=== PATIENT | female | born 1975 | race Two or more races ===

== ENCOUNTER 2025-05-16 13:55 | Outpatient (AMB) | payer MEDICARE, SELFPAY ==
--- OUTSIDE RECORDS SUMMARY | 2024-11-20 03:30 | XMS_ITS ---
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 Medications Medication SIG (Take, Route, Frequency, Duration) Notes Start Date End Date Status LORazepam 0.5 MG Tablet 1 tablet at bedt dottie as needed Orally nightly; Duration: 30 days 09/26/2024 Active Ezetimibe 10 MG Tablet TAKE 1 TABLET BY MOUTH EVERY DAY FOR 30 DAYS; Duration: 30 Active Escitalopram Oxalate 20 MG Tablet 1 tablet Orally Once a day; Duration: 90 days 06/16/2024 Active Mirtazapine 15 MG Tablet TAKE 1 TABLET B Y MOUTH EVERY DAY AT BEDTIME FOR 30 DAYS; Duration: 90 Active Vitamin D3 125 MCG (5000 UT) Capsule 1 capsule Orally Once a day; Duration: 90 days 03/02/2024 Active Vitamin B12 100 MCG Tablet 1 tablet Orally daiy; Duration: 90 days 03/02/2024 Active Folic Acid 1 MG Tablet 1 tablet Orally O nce a day; Duration: 90 days 03/02/2024 Active Thiamine HCl 100 MG Tablet 1 tablet Orally Once a day; Duration: 90 days 03/02/2024 Active Escitalopram Oxalate 5 MG Tablet 1 tablet Orally Once a day; Duration: 90 days Active Vivitrol 380 MG Suspension Reconstituted INJECT 380MG INTRAMUSCULARLY EVERY 4 WEEKS; Duration: 28 days Active Encounters Encounter Location Date Provider Diagnosis [facility] [address] [address] 11/20/2024 YAYO CALHOUN Alcohol abuse F10.10 Assessments Encounter Date Diagnosis (ICD Code) Assessment Notes Treatment Notes Treatment Clinical Notes Section Notes 11/20/2024 Alcohol abuse (ICD-10 - F10.10) Plan Of Treatment Next Appt Details Provider Name:YAYO CALHOUN, 06/18/2025 10:00:00 AM, [address] [place] [address], [facility] [address], [place], [address], Medications Administered Medication Instructions Date of Administration Dosage Notes Vivitrol 11/20/2024 LOT#2025-300h Progress Notes * Eleonora BROWNLuzmaB:[birth year] (49 yo F)Acc No.[id number]:11/20/2024 Progress Note Patient: July Nieves Provider: Raven CALHOUN NP :1975 A ge:49 Y S ex:Female Date:11/20/2024 Address:[address] [place], [place] [id number] Subjective: * Chief Complaints: * P t here for vivotrol injection on left buttocks, pt tolerated well with no reaction. * Medications: T akingVivitrol 380 MG Suspension Reconstituted INJECT 380MG INTRAMUSCULARLY EVERY 4 WEEKS Escitalopram Oxalate 5 MG Tablet 1 tablet Orally Once a day Thiamine HCl 100 MG Tablet 1 tablet Orally Once a day Folic Acid 1 MG Tablet 1 tablet Orally Once a day Vitamin B12 100 MCG Tablet 1 tablet Orally daiy Vitamin D3 125 MCG (5000 UT) Capsule 1 capsule Orally Once a day Mirtazapine 15 MG Tablet TAKE 1 TABLET BY MOUTH EVERY DAY AT BEDTIME FOR 30 DAYS Escitalopram Oxalate 20 MG Tablet 1 tablet Orally Once a day Ezetimibe 10 MG Tablet TAKE 1 TABLET BY MOUTH EVERY DAY FOR 30 DAYS LORazepam 0.5 MG Tablet 1 tablet at bedtime as needed Orally nightly Taking Vivitrol 380 MG Suspension Reconstituted INJECT 380MG INTRAMUSCULARLY EVERY 4 WEEKS Taking Escitalopram Oxalate 5 MG Tablet 1 tablet Orally Once a day Taking Thiamine HCl 100 MG Tablet 1 tablet Orally Once a day Taking Folic Acid 1 MG Tablet 1 tablet Orally Once a day Taking Vitamin B12 100 MCG Tablet 1 tablet Orally daiy Taking Vitamin D3 125 MCG (5000 UT) Capsule 1 capsule Orally Once a day Taking Mirtazapine 15 MG Tablet TAKE 1 TABLET BY MOUTH EVERY DAY AT BEDTIME FOR 30 DAYS Taking Escitalopram Oxalate 20 MG Tablet 1 tablet Orally Once a day Taking Ezetimibe 10 MG Tablet TAKE 1 TABLET BY MOUTH EVERY DAY FOR 30 DAYS Taking LORazepam 0.5 MG Tablet 1 tablet at bedtime as needed Orally nightly Assessment: * Assessment: 1. A lcohol abuse - F10.10 Plan: * Therapeutic Injections: Vivitrol (Route: Intramuscular) given by Usama Grady on left buttock * Procedure Codes: J 2315 NALTREXONE, DEPOT [id number] THER/PROPH/DIAG INJ, SC/IM Billing Information: * Procedure Codes: J2315 NALTREXONE, DEPOT FORM. [id number] THER/PROPH/DIAG INJ, SC/IM. Care Plan Details* * Electronic signature of KATARZYNA CALHOUN on 05/16/2025 at 01:57 PM EST Sign off status: Pending * Provider: Raven CALHOUN NP Date: 0 11/20/2024 Generated for Izzy amado/Rito/Dima on: 07/17/2024 01:57 PM EST
--- OUTSIDE RECORDS SUMMARY | 2024-12-22 04:00 | XMS_ITS ---
Author Organization [facility] [address] Address [address] [place] [address] Care Team Providers Care Advertising Consultant Name Role Phone YAYO CALHOUN Unavailable [phone] REASON FOR VISIT vivitrol Encounters Encounter Location Date Provider Diagnosis [facility] [address] [facility] [address] [place] [address] 12/22/2024 YAYO CALHOUN Plan Of Treatment Next Appt Details Provider Name:YAYO CALHOUN, 06/18/2025 10:00:00 AM, [address] [facility], [facility] [address], [place], [address], Progress Notes * Jameson BROWNB:[birth year] (49 yo F)Acc No.[id number]:12/22/2024 Progress Note Patient: July Nieves Provider: Raven CALHOUN NP :1975 A ge:49 Y S ex:Female Date:12/22/2024 Address:[address] [place] [id number] Subjective: * Chief Complaints: * V ivitrol Plan: * Procedure Codes: 9 9199 NO SHOW OFFICE VISIT Billing Information: * Procedure Codes: 33616 NO SHOW OFFICE VISIT. Care Plan Details* * Electronic signature of KATARZYNA CALHOUN on 05/16/2025 at 01:58 PM EST Sign off status: Pending * Provider: Raven CALHOUN NP Date: 0 12/22/2024 Generated for Printi ng/Faxing/eTransmitting on: 1 07/17/2024 01:58 PM EST
--- OUTSIDE RECORDS SUMMARY | 2024-12-29 03:30 | XMS_ITS ---
Author Organization [facility] [address] Address [address] [place] [address] Care Team Providers Care Spare Person Name Role Phone YAYO CALHOUN Unavailable [phone] REASON FOR VISIT mic Medications Medication SIG (Take, Route, Frequency, Duration) Notes Start Date End Date Status Escitalopram Oxalate 20 MG Tablet TAKE 1 TABLET BY MOUTH EVERY DAY FOR 90 DAYS; Duration: 90 Active Vivitrol 380 MG Suspension Reconstituted INJECT 380MG INTO THE MUSCLE EVERY 28 DAYS; Duration: 28 Active Ezetimibe 10 MG Tablet TAKE 1 TABLET BY MOUTH EVERY DAY FOR 30 DAYS; Duration: 30 Active Mirtazapine 15 MG Tablet TAKE 1 TABLET B Y MOUTH EVERY DAY AT BEDTIME FOR 30 DAYS; Duration: 90 Active LORazepam 0.5 MG Tablet 1 tablet at bedt dottie as needed Orally nightly; Duration: 30 days 11/23/2024 Active Folic Acid 1 MG Tablet 1 tablet Orally O nce a day; Duration: 90 days 03/02/2024 Active Thiamine HCl 100 MG Tablet 1 tablet Oral ly Once a day; Duration: 90 days 03/02/2024 Active Escitalopram Oxalate 5 MG Tablet 1 tablet Orally Once a day; Duration: 90 days Active Vitamin D3 125 MCG (5000 UT) Capsule 1 capsule Orally Once a day; Duration: 90 days 03/02/2024 Active Vitamin B12 100 MCG Tablet 1 tablet Oral ly daiy; Duration: 90 days 03/02/2024 Active Encounters Encounter Location Date Provider Diagnosis [facility] [address] [address] 12/29/2024 YAYO CALHOUN Plan Of Treatment Next Appt Details Provider Name:YAYO CALHOUN, 06/18/2025 10:00:00 AM, [address] [facility], [facility] [address], [place], [address], Progress Notes * Jameson BROWNB:[birth year] (49 yo F)Acc No.[id number]:12/29/2024 Progress Note Patient: July Nieves Provider: Raven CALHOUN NP :1975 A ge:49 Y S ex:Female Date:12/29/2024 Address:[address] [place], [place] [phone] Subjective: * Chief Complaints: * M icc * Medications: T akingEscitalopram Oxalate 5 MG Tablet 1 tablet Orally Once a day Thiamine HCl 100 MG Tablet 1 tablet Orally Once a day Folic Acid 1 MG Tablet 1 tablet Orally Once a day Vitamin B12 100 MCG Tablet 1 tablet Orally daiy Vitamin D3 125 MCG (5000 UT) Capsule 1 capsule Orally Once a day LORazepam 0.5 MG Tablet 1 tablet at bedtime as needed Orally nightly Mirtazapine 15 MG Tablet TAKE 1 TABLET BY MOUTH EVERY DAY AT BEDTIME FOR 30 DAYS Ezetimibe 10 MG Tablet TAKE 1 TABLET BY MOUTH EVERY DAY FOR 30 DAYS Vivitrol 380 MG Suspension Reconstituted INJECT 380MG INTO THE MUSCLE EVERY 28 DAYS Escitalopram Oxalate 20 MG Tablet TAKE 1 TABLET BY MOUTH EVERY DAY FOR 90 DAYS Taking Escitalopram Oxalate 5 MG Tablet 1 tablet Orally Once a day Taking Thiamine HCl 100 MG Tablet 1 tablet Orally Once a day Taking Folic Acid 1 MG Tablet 1 tablet Orally Once a day Taking Vitamin B12 100 MCG Tablet 1 tablet Orally daiy Taking Vitamin D3 125 MCG (5000 UT) Capsule 1 capsule Orally Once a day Taking LORazepam 0.5 MG Tablet 1 tablet at bedtime as needed Orally nightly Taking Mirtazapine 15 MG Tablet TAKE 1 TABLET BY MOUTH EVERY DAY AT BEDTIME FOR 30 DAYS Taking Ezetimibe 10 MG Tablet TAKE 1 TABLET BY MOUTH EVERY DAY FOR 30 DAYS Taking Vivitrol 380 MG Suspension Reconstituted INJECT 380MG INTO THE MUSCLE EVERY 28 DAYS Taking Escitalopram Oxalate 20 MG Tablet TAKE 1 TABLET BY MOUTH EVERY DAY FOR 90 DAYS Plan: * Procedure Codes: 9 9199 NO SHOW OFFICE VISIT Billing Information: * Procedure Codes: 61790 NO SHOW OFFICE VISIT. Care Plan Details* * Electronic signature of KATARZYNA CALHOUN on 05/16/2025 at 01:56 PM EST Sign off status: Pending * Provider: Raven CALHOUN NP Date: 0 12/29/2024 Generated for Izzy amado/Rito/Dima on: 07/17/2024 01:56 PM EST
--- OUTSIDE RECORDS SUMMARY | 2025-02-23 04:15 | XMS_ITS ---
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 Phone YAYO CALHOUN Unavailable [phone] Medications Medication SIG (Take, Route, Frequency, Duration) Notes Start Date End Date Status Vitamin D3 125 MCG (5000 UT) Capsule 1 capsule Orally Once a day; Duration: 90 days Active LORazepam 0.5 MG Tablet 1 tablet at bedt dottie as needed Orally nightly; Duration: 30 days Active Thiamine HCl 100 MG Tablet 1 tablet Oral ly Once a day; Duration: 90 days Active Vitamin B12 100 MCG Tablet 1 tablet Oral ly daiy; Duration: 90 days Active Folic Acid 1 MG Tablet 1 tablet Orally O nce a day; Duration: 90 days Active Mirtazapine 15 MG Tablet TAKE 1 TABLET B Y MOUTH EVERY DAY AT BEDTIME FOR 30 DAYS; Duration: 90 Active Vivitrol 380 MG Suspension Reconstituted INJECT 380MG INTO THE MUSCLE EVERY 28 DAYS; Duration: 28 Active Ezetimibe 10 MG Tablet TAKE 1 TABLET BY MOUTH EVERY DAY FOR 30 DAYS; Duration: 30 Active Escitalopram Oxalate 20 MG Tablet TAKE 1 TABLET BY MOUTH EVERY DAY FOR 90 DAYS; Duration: 90 Active Escitalopram Oxalate 5 MG Tablet 1 tablet Orally Once a day; Duration: 90 days Active Encounters Encounter Location Date Provider Diagnosis [facility] [address] [address] 02/23/2025 YAYO CALHOUN Anxiety F41.9 ; Alco hol abuse, uncomplicated F10.10 ; Severe episode of recurrent major depressive disorder, without psychotic features F33.2 ; Abdominal pain of unknown etiology R10.9 ; Elevated LFTs R79.89 ; Other chronic pain G89.29 ; Mixed hyperlipidemia E78.2 ; Fatty liver K76.0 and Encounter for examination of blood pressure without abnormal findings Z01.30 Assessments Encounter Date Diagnosis (ICD Code) Assessment Notes Treatment Notes Treatment Clinical Notes Section Notes 02/23/2025 Anxiety (ICD-10 - F41.9) Acute Concerns/Problem List: 02/23/2025 Please resume and continue taking your Lexapro regularly, Ativan for breakthrough Please consider incorporating psychotherapy Took Vivitrol 48 hours ago, last drink 72 hours ago Discussed importance of consistent use of this medication and to refrain from alcohol use If worsening symptoms, ER advised given Continue Ezetimibe as prescribed, repeat lipid panel sent Nurse visit scheduled for her Vivitrol injections I like to see her back in 4 weeks Of note, some information is being carried forward from prior records for informational purposes only and is being cited so that efficiency, safety and quality of the patient's care is not compromised This note was prepared using voice recognition software and direct typing Please excuse inadvertent section beamer or typing errors, or uncorrected word substitutions Although every attempt has been made by the provider to proofread this document, occasional misspellings and typographical errors may still be present Due to the previous pandemic, and the use of personal protective equipment (PPE) This may decrease voice recognition accuracy Inadvertent section beamer errors may occur 02/23/2025 Alcohol abuse, uncomplicated (ICD-10 - F10.10) Acute Concerns/Problem List: 02/23/2025 Please resume and continue taking your Lexapro regularly, Ativan for breakthrough Please consider incorporating psychotherapy Took Vivitrol 48 hours ago, last drink 72 hours ago Discussed importance of consistent use of this medication and to refrain from alcohol use If worsening symptoms, ER advised given Continue Ezetimibe as prescribed, repeat lipid panel sent Nurse visit scheduled for her Vivitrol injections I like to see her back in 4 weeks Of note, some information is being carried forward from prior records for informational purposes only and is being cited so that efficiency, safety and quality of the patient's care is not compromised This note was prepared using voice recognition software and direct typing Please excuse inadvertent section beamer or typing errors, or uncorrected word substitutions Although every attempt has been made by the provider to proofread this document, occasional misspellings and typographical errors may still be present Due to the previous pandemic, and the use of personal protective equipment (PPE) This may decrease voice recognition accuracy Inadvertent section beamer errors may occur 02/23/2025 Severe episode of recurrent major depressive disorder, without psychotic features (ICD-10 - F33.2) Acute Concerns/Problem List: 02/23/2025 Please resume and continue taking your Lexapro regularly, Ativan for breakthrough Please consider incorporating psychotherapy Took Vivitrol 48 hours ago, last drink 72 hours ago Discussed importance of consistent use of this medication and to refrain from alcohol use If worsening symptoms, ER advised given Continue Ezetimibe as prescribed, repeat lipid panel sent Nurse visit scheduled for her Vivitrol injections I like to see her back in 4 weeks Of note, some information is being carried forward from prior records for informational purposes only and is being cited so that efficiency, safety and quality of the patient's care is not compromised This note was prepared using voice recognition software and direct typing Please excuse inadvertent section beamer or typing errors, or uncorrected word substitutions Although every attempt has been made by the provider to proofread this document, occasional misspellings and typographical errors may still be present Due to the previous pandemic, and the use of personal protective equipment (PPE) This may decrease voice recognition accuracy Inadvertent section beamer errors may occur 02/23/2025 Abdominal pain of unknown etiology (ICD-10 - R10.9) Acute Concerns/Problem List: 02/23/2025 Please resume and continue taking your Lexapro regularly, Ativan for breakthrough Please consider incorporating psychotherapy Took Vivitrol 48 hours ago, last drink 72 hours ago Discussed importance of consistent use of this medication and to refrain from alcohol use If worsening symptoms, ER advised given Continue Ezetimibe as prescribed, repeat lipid panel sent Nurse visit scheduled for her Vivitrol injections I like to see her back in 4 weeks Of note, some information is being carried forward from prior records for informational purposes only and is being cited so that efficiency, safety and quality of the patient's care is not compromised This note was prepared using voice recognition software and direct typing Please excuse inadvertent section beamer or typing errors, or uncorrected word substitutions Although every attempt has been made by the provider to proofread this document, occasional misspellings and typographical errors may still be present Due to the previous pandemic, and the use of personal protective equipment (PPE) This may decrease voice recognition accuracy Inadvertent section beamer errors may occur 02/23/2025 Elevated LFTs (ICD-10 - R79.89) Acute Concerns/Problem List: 02/23/2025 Please resume and continue taking your Lexapro regularly, Ativan for breakthrough Please consider incorporating psychotherapy Took Vivitrol 48 hours ago, last drink 72 hours ago Discussed importance of consistent use of this medication and to refrain from alcohol use If worsening symptoms, ER advised given Continue Ezetimibe as prescribed, repeat lipid panel sent Nurse visit scheduled for her Vivitrol injections I like to see her back in 4 weeks Of note, some information is being carried forward from prior records for informational purposes only and is being cited so that efficiency, safety and quality of the patient's care is not compromised This note was prepared using voice recognition software and direct typing Please excuse inadvertent section beamer or typing errors, or uncorrected word substitutions Although every attempt has been made by the provider to proofread this document, occasional misspellings and typographical errors may still be present Due to the previous pandemic, and the use of personal protective equipment (PPE) This may decrease voice recognition accuracy Inadvertent section beamer errors may occur 02/23/2025 Other chronic pain (ICD-10 - G89.29) Acute Concerns/Problem List: 02/23/2025 Please resume and continue taking your Lexapro regularly, Ativan for breakthrough Please consider incorporating psychotherapy Took Vivitrol 48 hours ago, last drink 72 hours ago Discussed importance of consistent use of this medication and to refrain from alcohol use If worsening symptoms, ER advised given Continue Ezetimibe as prescribed, repeat lipid panel sent Nurse visit scheduled for her Vivitrol injections I like to see her back in 4 weeks Of note, some information is being carried forward from prior records for informational purposes only and is being cited so that efficiency, safety and quality of the patient's care is not compromised This note was prepared using voice recognition software and direct typing Please excuse inadvertent section beamer or typing errors, or uncorrected word substitutions Although every attempt has been made by the provider to proofread this document, occasional misspellings and typographical errors may still be present Due to the previous pandemic, and the use of personal protective equipment (PPE) This may decrease voice recognition accuracy Inadvertent section beamer errors may occur 02/23/2025 Mixed hyperlipidemia (ICD-10 - E78.2) Acute Concerns/Problem List: 02/23/2025 Please resume and continue taking your Lexapro regularly, Ativan for breakthrough Please consider incorporating psychotherapy Took Vivitrol 48 hours ago, last drink 72 hours ago Discussed importance of consistent use of this medication and to refrain from alcohol use If worsening symptoms, ER advised given Continue Ezetimibe as prescribed, repeat lipid panel sent Nurse visit scheduled for her Vivitrol injections I like to see her back in 4 weeks Of note, some information is being carried forward from prior records for informational purposes only and is being cited so that efficiency, safety and quality of the patient's care is not compromised This note was prepared using voice recognition software and direct typing Please excuse inadvertent section beamer or typing errors, or uncorrected word substitutions Although every attempt has been made by the provider to proofread this document, occasional misspellings and typographical errors may still be present Due to the previous pandemic, and the use of personal protective equipment (PPE) This may decrease voice recognition accuracy Inadvertent section beamer errors may occur 02/23/2025 Fatty liver (ICD-10 - K76.0) Acute Concerns/Problem List: 02/23/2025 Please resume and continue taking your Lexapro regularly, Ativan for breakthrough Please consider incorporating psychotherapy Took Vivitrol 48 hours ago, last drink 72 hours ago Discussed importance of consistent use of this medication and to refrain from alcohol use If worsening symptoms, ER advised given Continue Ezetimibe as prescribed, repeat lipid panel sent Nurse visit scheduled for her Vivitrol injections I like to see her back in 4 weeks Of note, some information is being carried forward from prior records for informational purposes only and is being cited so that efficiency, safety and quality of the patient's care is not compromised This note was prepared using voice recognition software and direct typing Please excuse inadvertent section beamer or typing errors, or uncorrected word substitutions Although every attempt has been made by the provider to proofread this document, occasional misspellings and typographical errors may still be present Due to the previous pandemic, and the use of personal protective equipment (PPE) This may decrease voice recognition accuracy Inadvertent section beamer errors may occur 02/23/2025 Encounter for examination of blood pressure without abnormal findings (ICD-10 - Z01.30) Acute Concerns/Problem List: 02/23/2025 Please resume and continue taking your Lexapro regularly, Ativan for breakthrough Please consider incorporating psychotherapy Took Vivitrol 48 hours ago, last drink 72 hours ago Discussed importance of consistent use of this medication and to refrain from alcohol use If worsening symptoms, ER advised given Continue Ezetimibe as prescribed, repeat lipid panel sent Nurse visit scheduled for her Vivitrol injections I like to see her back in 4 weeks Of note, some information is being carried forward from prior records for informational purposes only and is being cited so that efficiency, safety and quality of the patient's care is not compromised This note was prepared using voice recognition software and direct typing Please excuse inadvertent section beamer or typing errors, or uncorrected word substitutions Although every attempt has been made by the provider to proofread this document, occasional misspellings and typographical errors may still be present Due to the previous pandemic, and the use of personal protective equipment (PPE) This may decrease voice recognition accuracy Inadvertent section beamer errors may occur Plan Of Treatment Medication Medication Name Sig Start Date Stop Date Notes Vitamin D3 125 MCG (5000 UT) Capsule 1 capsule Orally Once a day; Duration: 90 days LORazepam 0.5 MG Tablet 1 tablet at bedt dottie as needed Orally nightly; Duration: 30 days Thiamine HCl 100 MG Tablet 1 tablet Oral ly Once a day; Duration: 90 days Vitamin B12 100 MCG Tablet 1 tablet Oral ly daiy; Duration: 90 days Folic Acid 1 MG Tablet 1 tablet Orally O nce a day; Duration: 90 days Escitalopram Oxalate 5 MG Tablet 1 table t Orally Once a day; Duration: 90 days Next Appt Details Provider Name:YAYO CALHOUN, 06/18/2025 10:00:00 AM, [address] [place] [address], [id number], History and Physical Notes * HPI (History of Present Illness) Category Sub-Category Detail Notes Category Not es Constitutional Patient is here for Chronic Disease Management follow-up visit Patient seen and examined. Full past medical history, social history, family history, allergies and current medications were reviewed and updated. Acute Concerns/Problem List: 02/23/2025 Poor compliance and no-shows, multiple reschedules Depression follow-up, Substance abuse and EtOH dependence Requesting work note for mental health break until November 27 Denies any SI, is tearful today in the room Has been off and on Vivitrol injections in the past Received Vivitrol shot 2 days ago, Wednesday the first Reports last EtOH use 24 hours prior She has been inconsistent with her use Had been doing well on it however continues to endorse occasional binge drinking Psychotherapy strongly urged and recommended in combination with pharmacological therapy was seeing Dr Harper/psych, dx with major depression, however was DC due to missing appts RX lorazapam/lexapro 10mg, Takes intermittently Requesting Lorazepam to help with racing thoughts at night NO SI Endorses family Hx of cardiac disease in 2 paternal uncles & grandfather, maternal grandfather, 2 aunts and uncle. has been taking Ezetimibe as prescribed, Decided against statins given LFTs and drinking history Recently saw GI and had labs done with them in May 2024 Following up with GI in September, with Xray scheduled for August Previously, TTG was negative as well as gliadin antibodies, endomysial antibody H. pylori breath test however was positive Patient has had waxing and waning abdominal discomfort mostly over the epigastrium for the last several months Has had upper endoscopy and colonoscopy about 2 to 3 years ago she states with [facility] said that it is likely psychosomatic and she is now on SSRI We did start her on PPI and did abdomen CT, Colonoscopy, EGD multiple GI studies, As well as liver ultrasound which showed a fatty liver She reports postprandial abdominal bloating and pain over the epigastrium She does have a history of abnormal uterine bleeding and endometrial mass She underwent fractional D&C hysteroscopy and polypectomy back in 2021 Sees [employer] and was doing transdermal HRT for menopause also [facility] 06/14/2023, [place] [facility] [place] with [place] Guajardo Comprehensive labs May 2024 CBC stable Total cholesterol 280, LDL 180, HDL 72, triglycerides 139 Vitamin D 15 TSH 1.07 Renal function electrolytes are stable AST 55, ALT 76, alk phos of 130 Hemoglobin A1c 4.8 UA unremarkable Hemoglobin A1c 4.9 Health maintenance Flu 2024 COVID: x3 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 Examination Category Sub-Category Detail Notes Category Not es General Examination GENERAL APPEARANCE: in no ac rakan distress, well developed, well nourished HEAD: normocephalic, atrau matic EYES: pupils equal, round, reactive to light and accommodation EARS: normal THROAT: clear NECK/THYROID: neck supple, full ra nge of motion, no cervical lymphadenopathy HEART: no murmurs, tachycar dic rate and rhythm, S1, S2 normal LUNGS: clear to auscultatio n bilaterally ABDOMEN: normal, bowel sounds present, soft, nontender, nondistended NEUROLOGIC: nonfocal, motor stre ngth normal upper and lower extremities, sensory exam intact SKIN: no suspicious lesion s, warm and dry EXTREMITIES: no clubbing, cyanosi s, or edema ORAL CAVITY: mucosa moist Progress Notes * Eleonora BROWNaDOB:[birth year] (49 yo F)Acc No.[id number]:02/23/2025 Progress Notes Patient: July Nieves Provider: Raven CALHOUN NP :1975 A ge:49 Y S ex:Female Date:02/23/2025 Address:[address] [place], [place] [id number] Subjective: * Chief Complaints: * HPI: C onstitutional: Patient is here for Chronic Disease Management follow-up visit Patient seen and examined. Full past medical history, social history, family history, allergies and current medications were reviewed and updated. Acute Concerns/Problem List: 02/23/2025 Poor compliance and no-shows, multiple reschedules Depression follow-up, Substance abuse and EtOH dependence Requesting work note for mental health break until Wednesday, November 27 Denies any SI, is tearful today in the room Has been off and on Vivitrol injections in the past Received Vivitrol shot 2 days ago, Wednesday the first Reports last EtOH use 24 hours prior She has been inconsistent with her use Had been doing well on it however continues to endorse occasional binge drinking Psychotherapy strongly urged and recommended in combination with pharmacological therapy was seeing Dr Harper/psych, dx with major depression, however was DC due to missing appts RX lorazapam/lexapro 10mg, Takes intermittently Requesting Lorazepam to help with racing thoughts at night NO SI Endorses family Hx of cardiac disease in 2 paternal uncles & grandfather, maternal grandfather, 2 aunts and uncle. has been taking Ezetimibe as prescribed, Decided against statins given LFTs and drinking history Recently saw GI and had labs done with them in May 2024 Following up with GI in September, with Xray scheduled for August Previously, TTG was negative as well as gliadin antibodies, endomysial antibody H. pylori breath test however was positive Patient has had waxing and waning abdominal discomfort mostly over the epigastrium for the last several months Has had upper endoscopy and colonoscopy about 2 to 3 years ago she states with [facility] said that it is likely psychosomatic and she is now on SSRI We did start her on PPI and did abdomen CT, Colonoscopy, EGD multiple GI studies, As well as liver ultrasound which showed a fatty liver She reports postprandial abdominal bloating and pain over the epigastrium She does have a history of abnormal uterine bleeding and endometrial mass She underwent fractional D&C hysteroscopy and polypectomy back in 2021 Sees [employer] and was doing transdermal HRT for menopause also [facility] 06/14/2023, @ [facility] [place] with Dr Guajardo Comprehensive labs May 2024 CBC stable Total cholesterol 280, LDL 180, HDL 72, triglycerides 139 Vitamin D 15 TSH 1.07 Renal function electrolytes are stable AST 55, ALT 76, alk phos of 130 Hemoglobin A1c 4.8 UA unremarkable Hemoglobin A1c 4.9 Health maintenance Flu 2024 COVID: x3 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 * ROS: A ll Other Systems: Review of Systems (ROS) A ll others negative except those mentioned in HPI. * Medications: T akingEscitalopram Oxalate 5 MG [...] BY MOUTH EVERY DAY FOR 90 DAYS LORazepam 0.5 MG Tablet 1 tablet at bedtime as needed Orally nightly Taking Escitalopram Oxalate 5 MG Tablet 1 [...] MOUTH EVERY DAY FOR 90 DAYS Taking LORazepam 0.5 MG Tablet 1 tablet at bedtime as needed Orally nightly Objective: * Examination: G eneral Examination: GENERAL APPEARANCE: i n no acute distress, well developed, well nourished. HEAD: n ormocephalic, atraumatic. EYES: p upils equal, round, reactive to light and accommodation. EARS: n ormal. ORAL CAVITY: m ucosa moist. THROAT: c lear. NECK/THYROID: n jeremiah supple, full range of motion, no cervical lymphadenopathy. SKIN: n o suspicious lesions, warm and dry. HEART: n o murmurs, tachycardic rate and rhythm, S1, S2 normal. LUNGS: c lear to auscultation bilaterally. ABDOMEN: n ormal, bowel sounds present, soft, nontender, nondistended. EXTREMITIES: n o clubbing, cyanosis, or edema. NEUROLOGIC: n onfocal, motor strength normal upper and lower extremities, sensory exam intact. Assessment: * Assessment: 1. S evere episode of recurrent major depressive disorder, without psychotic features - F33.2 (Primary) 2 . A nxiety - F41.9 3 . A lcohol abuse, uncomplicated - F10.10 4 . A bdominal pain of unknown etiology - R10.9 5 . Elevated LFTs - R79.89 6 . O ther chronic pain - G89.29 7 . M ixed hyperlipidemia - E78.2 8 . F atty liver - K76.0 9 .?Encounter for examination of blood pressure without abnormal findings - Z01.30 ? Acute Concerns/Problem List: 02/23/2025 Please resume and continue taking your Lexapro regularly, Ativan for breakthrough Please consider incorporating psychotherapy Took Vivitrol 48 hours ago, last drink 72 hours ago Discussed importance of consistent use of this medication and to refrain from alcohol use If worsening symptoms, ER advised given Continue Ezetimibe as prescribed, repeat lipid panel sent Nurse visit scheduled for her Vivitrol injections I like to see her back in 4 weeks Of note, some information is being carried forward from prior records for informational purposes only and is being cited so that efficiency, safety and quality of the patient's care is not compromised This note was prepared using voice recognition software and direct typing Please excuse inadvertent section beamer or typing errors, or uncorrected word substitutions Although every attempt has been made by the provider to proofread this document, occasional misspellings and typographical errors may still be present Due to the previous pandemic, and the use of personal protective equipment (PPE) This may decrease voice recognition accuracy Inadvertent section beamer errors may occur Plan: * Treatment: Care Plan Details* * Electronic signature of KATARZYNA CALHOUN on 05/16/2025 at 01:57 PM EST Sign off status: Pending * Provider: Raven CALHOUN NP Date: Generated for Izzy amado/Rito/Dima on: 07/17/2024 01:57 PM EST
--- OUTSIDE RECORDS SUMMARY | 2025-03-29 09:00 | XMS_ITS ---
Author Organization [facility] Address [address] [place] [address] Care Team Providers Care Mental Health Program Manager Name Role Phone YAYO CALHOUN Unavailable [phone] REASON FOR VISIT Pt here for vivitrol injection on right buttocks. Pt tolerated well with no reaction. Medications Medication SIG (Take, Route, Frequency, Duration) Notes Start Date End Date Status Escitalopram Oxalate 20 MG Tablet TAKE 1 TABLET BY MOUTH EVERY DAY FOR 90 DAYS; Duration: 90 Active Thiamine HCl 100 MG Tablet 1 tablet Oral ly Once a day; Duration: 90 days Active Escitalopram Oxalate 5 MG Tablet 1 tablet Orally Once a day; Duration: 90 days Active Vitamin B12 100 MCG Tablet 1 tablet Oral ly daiy; Duration: 90 days Active Folic Acid 1 MG Tablet 1 tablet Orally O nce a day; Duration: 90 days Active LORazepam 0.5 MG Tablet 1 tablet at bedt dottie as needed Orally nightly; Duration: 30 days Active Vitamin D3 125 MCG (5000 UT) Capsule 1 capsule Orally Once a day; Duration: 90 days Active Mirtazapine 15 MG Tablet TAKE 1 TABLET B Y MOUTH EVERY DAY AT BEDTIME FOR 30 DAYS; Duration: 90 Active Ezetimibe 10 MG Tablet TAKE 1 TABLET BY MOUTH EVERY DAY FOR 30 DAYS; Duration: 30 Active Vivitrol 380 MG Suspension Reconstituted INJECT 380MG INTO THE MUSCLE EVERY 28 DAYS; Duration: 28 Active Encounters Encounter Location Date Provider Diagnosis [facility] [address] [address] 03/29/2025 YAYO CALHOUN Alcohol abuse F10.10 Assessments Encounter Date Diagnosis (ICD Code) Assessment Notes Treatment Notes Treatment Clinical Notes Section Notes 03/29/2025 Alcohol abuse (ICD-10 - F10.10) Plan Of Treatment Next Appt Details Provider Name:YAYO LJ, 06/18/2025 10:00:00 AM, [address] [place] [address], [place], [address], Progress Notes * Eleonora BROWNLuzmaB:[birth year] (49 yo F)Acc No.[id number]:03/29/2025 Progress Note Patient: July Nieves Provider: Raven CALHOUN NP :1975 A ge:49 Y S ex:Female Date:03/29/2025 Address:[address] [place], [place] [id number] Subjective: * Chief Complaints: * P t here for vivitrol injection on right buttocks. Pt tolerated well with no reaction. * Medications: T akingMirtazapine 15 MG Tablet TAKE 1 TABLET BY MOUTH EVERY DAY AT BEDTIME FOR 30 DAYS Ezetimibe 10 MG Tablet TAKE 1 TABLET BY MOUTH EVERY DAY FOR 30 DAYS Vivitrol 380 MG Suspension Reconstituted INJECT 380MG INTO THE MUSCLE EVERY 28 DAYS Escitalopram Oxalate 20 MG Tablet TAKE 1 TABLET BY MOUTH EVERY DAY FOR 90 DAYS Escitalopram Oxalate 5 MG Tablet 1 tablet [...] A lcohol abuse - F10.10 Plan: * Procedure Codes: 9 6372 THER/PROPH/DIAG INJ, SC/IM Billing Information: * Procedure Codes: 10514 THER/PROPH/DIAG INJ, SC/IM. Care Plan Details* * Electronic signature of KATARZYNA CALHOUN on 05/16/2025 at 01:57 PM EST Sign off status: Pending * Provider: Raven CALHOUN NP Date: 05/29/2024 Generated for Izzy Kennedy/Dima on: 07/17/2024 01:57 PM EST
--- OUTSIDE RECORDS SUMMARY | 2025-03-30 04:15 | XMS_ITS ---
Author Organization [facility] [address] Address [address] [place] [address] Care Team Providers Care Phlebotomist Supervisor/Instructor Name Role Phone YAYO CALHOUN Unavailable [phone] Zenaida Agustin Unavailable [phone] REASON FOR VISIT pt fell last week is having left hip and leg pain. Medications Medication SIG (Take, Route, Frequency, Duration) Notes Start Date End Date Status Vitamin D3 125 MCG (5000 UT) Capsule 1 capsule Orally Once a day; Duration: 90 days Active Vitamin B12 100 MCG Tablet 1 tablet Oral ly daiy; Duration: 90 days Active LORazepam 0.5 MG Tablet 1 tablet at bedt dottie as needed Orally nightly; Duration: 30 days Active Ezetimibe 10 MG Tablet TAKE 1 TABLET BY MOUTH EVERY DAY FOR 30 DAYS; Duration: 30 Active Mirtazapine 15 MG Tablet TAKE 1 TABLET B Y MOUTH EVERY DAY AT BEDTIME FOR 30 DAYS; Duration: 90 Active Escitalopram Oxalate 20 MG Tablet TAKE 1 TABLET BY MOUTH EVERY DAY FOR 90 DAYS; Duration: 90 Active Vivitrol 380 MG Suspension Reconstituted INJECT 380MG INTO THE MUSCLE EVERY 28 DAYS; Duration: 28 Active Escitalopram Oxalate 5 MG Tablet 1 tablet Orally Once a day; Duration: 90 days Active Folic Acid 1 MG Tablet 1 tablet Orally O nce a day; Duration: 90 days Active Thiamine HCl 100 MG Tablet 1 tablet Oral ly Once a day; Duration: 90 days Active Encounters Encounter Location Date Provider Diagnosis [facility] [address] [address] 03/30/2025 Zenaida Agustin Plan Of Treatment Next Appt Details Provider Name:YAYO CALHOUN, 06/18/2025 10:00:00 AM, [address] [facility], [facility] [address], [place], [address], Progress Notes * Jameson BROWNB:[birth year] (49 yo F)Acc No.[id number]:03/30/2025 Progress Notes Patient: July Nieves Provider: Ervin Agustin PA-C :1975 A ge:49 Y S ex:Female Date:03/30/2025 Address:[address] [place], [place] [phone] Subjective: * Chief Complaints: * P t fell last week is having left hip and leg pain. * Medications: T akingMirtazapine 15 MG Tablet [...] tablet at bedtime as needed Orally nightly Care Plan Details* * Electronic signature of Addis Agustin PA-C on 05/16/2025 at 01:57 PM EST Sign off status: Pending * Provider: Ervin Agustin PA-C Date: 05/30/2024 Generated for Izzy amado/Rito/Dima on: 07/17/2024 01:57 PM EST
--- OUTSIDE RECORDS SUMMARY | 2025-04-10 04:45 | XMS_ITS ---
Author Organization [facility] [address] Address [address] [place] [address] Care Team Providers Care Head Neck Surgeon Name Role Phone YAYO CALHOUN Unavailable [phone] Encounters Encounter Location Date Provider Diagnosis [facility] [address] [facility] [address] [place] [address] 04/10/2025 YAYO CALHOUN Plan Of Treatment Next Appt Details Provider Name:YAYO CALHOUN, 06/18/2025 10:00:00 AM, [address], [facility] [address], [place], [address], Progress Notes * Jameson BROWNB:[birth year] (49 yo F)Acc No.[id number]:04/10/2025 Progress Notes Patient: July Nieves Provider: Raven CALHOUN NP :1975 A ge:49 Y S ex:Female Date:04/10/2025 Address:[address] [place] [id number] Care Plan Details* * Electronic signature of KATARZYNA CALHOUN on 05/16/2025 at 01:57 PM EST Sign off status: Pending * Provider: Raven CALHOUN NP Date: 06/10/2024 Generated for Izzy amado/Rito/eTransmitting on: 07/17/2024 01:57 PM EST
--- OUTSIDE RECORDS SUMMARY | 2025-04-25 03:30 | XMS_ITS ---
Author Organization [facility] Address [address] [place] [address] Care Team Providers Care Supervisor Properties Name Role Phone YAYO CALHOUN Unavailable [phone] REASON FOR VISIT Pt here for vivitrol injection on left buttocks, pt tolerated well with no reaction. Medications Medication SIG (Take, Route, Frequency, Duration) Notes Start Date End Date Status Escitalopram Oxalate 20 MG Tablet TAKE 1 TABLET BY MOUTH EVERY DAY FOR 90 DAYS; Duration: 90 Active Vivitrol 380 MG Suspension Reconstituted INJECT 380MG INTO THE MUSCLE EVERY 28 DAYS; Duration: 28 Active Folic Acid 1 MG Tablet 1 tablet Orally O nce a day; Duration: 90 days 04/23/2025 Active Escitalopram Oxalate 5 MG Tablet 1 tablet Orally Once a day; Duration: 90 days 04/23/2025 Active Thiamine HCl 100 MG Tablet 1 tablet Oral ly Once a day; Duration: 90 days 04/23/2025 Active LORazepam 0.5 MG Tablet 1 tablet at bedt dottie as needed Orally nightly; Duration: 30 days 04/23/2025 Active Mirtazapine 15 MG Tablet TAKE 1 TABLET B Y MOUTH EVERY DAY AT BEDTIME FOR 30 DAYS; Duration: 90 Active Vitamin D3 125 MCG (5000 UT) Capsule 1 capsule Orally Once a day; Duration: 90 days 04/23/2025 Active Ezetimibe 10 MG Tablet TAKE 1 TABLET BY MOUTH EVERY DAY FOR 30 DAYS; Duration: 30 Active Vitamin B12 100 MCG Tablet 1 tablet Oral ly daiy; Duration: 90 days 04/23/2025 Active Encounters Encounter Location Date Provider Diagnosis [facility] [address] [address] 04/25/2025 YAYO CALHOUN Alcohol abuse F10.10 Assessments Encounter Date Diagnosis (ICD Code) Assessment Notes Treatment Notes Treatment Clinical Notes Section Notes 04/25/2025 Alcohol abuse (ICD-10 - F10.10) Plan Of Treatment Next Appt Details Provider Name:YAYO CALHOUN, 06/18/2025 10:00:00 AM, [address] [place] [address], [place] [address], [place], [address], Medications Administered Medication Instructions Date of Administration Dosage Notes Vivitrol 04/25/2025 LOT#[id number] Progress Notes * Eleonora BROWNLuzmaB:[birth year] (49 yo F)Acc No.[id number]:04/25/2025 Progress Note Patient: July Nieves Provider: Raven CALHOUN NP :1975 A ge:49 Y S ex:Female Date:04/25/2025 Address:[address] [place], [place] [id number] Subjective: * Chief Complaints: * P t here for vivitrol injection on left buttocks, pt tolerated well with no reaction. * Medications: T akingEscitalopram Oxalate 5 MG [...] BY MOUTH EVERY DAY FOR 90 DAYS Assessment: * Assessment: 1. A [facility] - F10.10 (Primary) Plan: * Therapeutic Injections: Vivitrol (Route: Intramuscular) given by Usama Grady on right buttock * Procedure Codes: 9 6372 THER/PROPH/DIAG INJ, SC/LVY1966 [employer]RE[employer], DEPOT FORM Billing Information: * Procedure Codes: 88253 THER/PROPH/DIAG INJ, SC/IM. J2315 NALTREXONE, DEPOT FORM. Care Plan Details* * Electronic signature of AKTARZYNA CALHOUN on 05/16/2025 at 01:57 PM EST Sign off status: Pending * Provider: Raven CALHOUN NP Date: 06/26/2024 Generated for Izzy Kennedy/Dima on: 07/17/2024 01:57 PM EST
--- NOTE | 2025-05-16 13:54 | A.PHYSOV ---
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 Patient was referred for a low back pain. Attendant Coin Operated Laundry Required: No Allergies aspirin Allergy (Unknown, Verified 05/10/25 11:06) Unknown Penicillins Allergy (Unknown, Verified 05/10/25 11:06) Unknown HPI Comments Details: History of Present Illness The patient is a 49 year old female presenting with left-sided buttock pain. The pain began a few weeks to a month and a half ago after she accidentally stepped on something. The pain is characterized as pressure in the left buttock that radiates down the left leg, and it primarily occurs with sitting. She states the pain was very uncomfortable at its worst but has gotten better over time. She has not previously tried physical therapy or certified social workers in health care for this issue. Her current medications include Vivitrol and lorazepam. An MRI of her back showed degenerative disc disease, shifted vertebrae, and moderate neuroforaminal stenosis, worse on the left side. She denies a history of diabetes. I reviewed the referring provider's no prior to consultation. Pain Description - Onset: Started a few weeks to a month and a half ago. - Location: Pain is primarily in the left buttock area. - Radiation: The pain radiates down the left leg. - Quality: Described as a feeling of pressure. - Exacerbating Factors: Pain is triggered by sitting. - Relieving Factors: Staying off her buttocks helps alleviate the pain. - Current Status: She denies having pain at the time of the visit, attributing this to avoiding sitting. Results - Imaging: - MRI Back: Findings reviewed, showing degenerative disc disease, two shifted vertebrae, and arthritis causing moderate left neuroforaminal stenosis. [facility] Surgical History (Updated 05/16/25 @ 13:56 by Mago Tracy MA) H/O: hysterectomy Previous section Social History (Updated 05/16/25 @ 14:01 by Mago Tracy MA) Alcohol intake: current Alcohol type: other Comment: h/o abuse on vivitrol to help stop Patient Tobacco Use Status: Never used Tobacco Use of substances other than those prescribed or required for medical reasons: No Current occupational status: employed Review of Systems Narrative Review of Systems - Musculoskeletal: Reports pressure-like pain in the left buttock when sitting and a feeling of being stick on forward flexion. - Denies pain at rest or with lumbar extension. - Neurological: Reports pain radiating down her left leg. Physical Exam Exam Exam: Physical Exam - Musculoskeletal: - Back: No tenderness to palpation over the lumbar spine or bilateral buttocks. - No pain with lumbar extension. - Forward flexion does not provoke back or leg pain, though the patient notes a stick sensation. - Neurological: - Sensation: Intact and symmetric to light touch in bilateral lower extremities. - Motor: Good strength with foot dorsiflexion/plantarflexion and thigh elevation. - Straight Leg Raise: Negative on the right. - On the left, she feels something there but it is not significantly painful. Vital Signs: BMI result Body Mass Index 35.4 Assessment & Plan Assessment & Plan (1) Lumbar radiculopathy: Code(s): M54.16 - Radiculopathy, lumbar region Category: Medical (2) Lumbar spondylosis: Code(s): M47.816 - Spondylosis without myelopathy or radiculopathy, lumbar region Category: Medical Plan Pain Management - Affect: The patient states the pain is really uncomfortable when it occurs. - Analgesia: Current pain is 0/10 as she is not sitting. - She has been prescribed ibuprofen 800 mg and a muscle relaxer to take as needed. - Activities of Daily Living: Pain interferes with her ability to sit. - Her goal is to live a better quality of life. - Aberrant Drug Related Behaviors: None noted or discussed. Plan Patient was informed and verbally consented to the use of an ambient scribe for clinic note documentation during this visit. 1. Left Lumbar Radiculopathy The patient's left buttock pain radiating down the leg is consistent with radiculopathy, which is explained by her MRI findings of moderate left neuroforaminal stenosis and degenerative changes. The mechanism is likely nerve root impingement that occurs with prolonged sitting. The plan is to start with conservative management. This includes activity modification, primarily avoiding prolonged sitting and incorporating standing breaks or using a mdo-if-mungm desk. Medications including ibuprofen 800 mg for as-needed use and a muscle relaxer at night have been prescribed. Other options such as physical therapy, certified social workers in health care, and an epidural steroid injection were discussed. The patient has opted to try medication and lifestyle changes first and will follow-up if her symptoms persist or worsen to consider an injection. 2. Degenerative Disc Disease And Spondylolisthesis The patient's MRI demonstrates degenerative disc disease and a mild spondylolisthesis, which are the underlying structural causes of her neuroforaminal stenosis and subsequent radicular symptoms. It was explained that these are chronic conditions that need to be monitored but do not require urgent intervention at this time, as progression can be slow. The plan includes encouraging general activity such as walking, swimming, and yoga to maintain back health. The primary management is focused on symptom control through activity modification and conservative measures as outlined for her radiculopathy. Discussion Notes I reviewed the patient's MRI findings with her, which include degenerative disc disease, a slight shift in her vertebrae, and moderate left-sided neuroforaminal stenosis. I explained that these changes are the likely cause of her left buttock and leg pain, which is exacerbated by sitting. We discussed various treatment options, including activity modification, anti-inflammatory medications, muscle relaxers, physical therapy, certified social workers in health care, and epidural steroid injections. I expressed my opinion that an injection would be too aggressive at this stage, but that it remains an option. I detailed the specifics of an epidural injection, explaining it is not a cure but can provide 3-6 months of pain relief, and reviewed the risks including infection, bleeding, and nerve damage. The patient agreed to a conservative approach first, focusing on modifying her activity by sitting less and trying medication. I prescribed ibuprofen 800 mg for as-needed use and a muscle relaxer for nighttime. I advised her to call the office if her symptoms do not improve or worsen, at which point we can proceed with ordering an injection or other therapies. Patient Instructions - Try to avoid sitting for long periods of time. - When you must sit, take breaks to stand or walk every 45-60 minutes. - Take Ibuprofen 800 mg as needed for your pain, up to three times a day. - Take the prescribed muscle relaxer at night. - Staying active with walking, swimming, or yoga is encouraged. - If your pain gets worse or is not improving, please call our office to discuss further treatment, such as an injection. Medications: New tizanidine 4 mg PO TID PRN 90 caps 6RF muscle spasticity 30 days M47.816 - Spondylosis without myelopathy or radiculopathy, lumbar region, M54.16 - Radiculopathy, lumbar region ibuprofen 800 mg PO TID 90 tabs 6RF 30 days M47.816 - Spondylosis without myelopathy or radiculopathy, lumbar region, M54.16 - Radiculopathy, lumbar region Coding Level of Care Code New Pt Level 4 (10722) Diagnoses Lumbar radiculopathy M54.16 Lumbar spondylosis M47.816
[2025-05-16 13:57] VITALS: BMI 35.4
--- OUTSIDE RECORDS SUMMARY | 2025-05-16 13:57 | XMS_ITS | Clinical Summary ---
Author Organization [facility] Prior to 10/21/[address] [place] [address] Care Team Providers Care Cardiopulmonary Supervisor Name Role Phone Stanislaw Haynes MD Primary Care Provider [phone] Allergies Active Allergy Reactions Criticality Noted Date Comments Aspirin 05/01/2014 Reaction as child Penicillins 05/01/2014 Reaction as child Medications Medication Sig Dispensed Refills Start Date End Date Status cyanocobalamin 100 MCG tablet Take 1 tablet by mouth daily. 0 04/11/2020 Active omeprazole (PriLOSEC) 20 MG capsule Take 20 mg by mouth. 0 02/20/2020 Active vitamin E 400 UNIT capsule Take 400 Units by mouth. 0 04/17/2020 Active sulfamethoxazole-trime thoprim (BACTRIM DS) 800-160 MG per tablet 0 10/31/2020 Act aimee simethicone (MYLICON) 125 MG chewable tablet Chew 125 mg by mouth. 0 03/01/2020 Active sertraline (ZOLOFT) 25 MG tablet 0 10/31/2020 Active ergocalciferol (VITAMIN D2) capsule 02131 units TAKE ONE CAPSULE BY MOUTH ONCE WEEKLY FOR 30 DAYS 0 01/30/2021 Active folic acid (FOLVITE) tablet 1 mg TAKE 1 TABLET BY MOUTH ONCE DAILY FOR 30 DAYS 0 02/03/2021 Active Vivitrol 380 MG SUSR injection 0 02/12/2021 Active norethindrone (AYGESTIN) 5 MG tablet 0 02/11/2021 Ac tive Active Problems Problem Noted Date Diagnosed Date Arthritis of knee, left 02/21/2021 Arthritis of knee, left 11/01/2020 Family History Medical History Relation Name Comments Hyperlipidemia Father Hyperlipidemia Mother Relation Name Status Comments Father Mother Social History Tobacco Use Types Packs/Day Years Used Date Smoking Tobacco: Unknown Alcohol Use Standard Drinks/Week Comments Yes 0 (1 standard drink = 0.6 oz pur e alcohol) Sex and Gender Information Value Date Recorded Sex Assigned at Not on file Gender Identity Not on file Sexual Orientation Not on file Job Start Date Occupation Industry Not on file Not on file Not on file Last Filed Vital Signs Vital Sign Reading Time Taken Comments Blood Pressure - - Pulse - - Temperature - - Respiratory Rate - - Oxygen Saturation - - Inhaled Oxygen Concentration - - Weight 86.6 kg (191 lb) 02/21/2021 8:30 AM EDT Height 162.6 cm (5' 4 ) 02/21/2021 8:30 AM EDT Body Mass Index 32.79 02/21/2021 8:30 AM EDT Plan of Treatment Health Maintenance Due Date Last Done Comments Hepatitis B Vaccines (1 of 3 - 3-dose series) 1975 Hepatitis C Screening 1975 COVID-19 Vaccine (#1) 03/08/1977 Depression Screening 1988 BMI Counseling 1994 Preventative Health Evaluation 1994 Cervical Cancer Screening (P ap Smear) 1997 Colon Cancer Screening (Colonoscopy) 2021 DTap / Tdap / Td (2 - Td or Tdap) 08/09/2024 015 Influenza Vaccine (#1) 2025 03/12/2020 Pneumococcal Vaccine Aged Out No long er eligible based on patient's age to complete this topic RSV Ped < 20 months Aged Out No longe r eligible based on patient's age to complete this topic Care Teams Cardiopulmonary Supervisor Relationship Specialty Start Date End Date Stanislaw Haynes MD [address] [place] [address] PCP - General Internal Medicine 10/23/20
--- OUTSIDE RECORDS SUMMARY | 2025-05-16 13:57 | XMS_ITS ---
Author Name [facility] Organization Unknown Encounters Encounter Type Encounter Reason Primary Diagnosis Location Date Ambulatory [facility] 03/21/2024 Care Team Organization Name Specialty Phone Email Start Date End Da te [facility] 2024 [facility] Stanislaw Haynes Primary Care 03/02/2024 [facility] KETTY Primary [facility] 03/23/2023 01/10/2024
--- OUTSIDE RECORDS SUMMARY | 2025-05-16 13:57 | XMS_ITS | Clinical Summary ---
Author Organization 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 1 Active cyanocobalamin (VITAMIN B-12) 100 mcg tablet Take 1 tablet (100 mcg total) by mouth 1 (one) time each day. 0 Active naltrexone microspheres (VivitroL) 380 mg suspension,extended rel recon intramuscular suspension Inject 1 Syringe (380 mg total) into the shoulder, thigh, or buttocks every 28 (twenty-eigh t) days. 1 Active sertraline (ZOLOFT) 25 mg tablet Take 2 tablets (50 mg total) by mouth 1 (one) time each day. 1 Active escitalopram (LEXAPRO) 5 mg tablet Take 1 tablet (5 mg total) by mouth 1 (one) time each day. Active cholecalciferol (Vitamin D3) 5,000 Units tablet Take 1 tablet (5,000 Units total) by mouth 1 (one) time each day. Active mirtazapine (REMERON AUBREY-TAB) 15 mg disintegrating tablet Dissolve 1 tablet (15 mg total) on top of the tongue at bedtime. Active nortriptyline (PAMELOR) 10 mg capsule Take 1 capsule (10 mg total) by mouth at bedtime. Active dicyclomine (BENTYL) 10 mg capsule Take 1 Cap by mouth 4 times daily for 180 days., Active vitamin E mixed 400 unit capsule Take 1 Cap by mouth 2 times daily Active simethicone (MYLICON) 125 mg chewable tablet Take 1 Tab by mouth every 6 hours as needed for Flatulence., Active estradioL (VIVELLE-DOT) 0.1 mg/[address] 1 patch on the skin 2 (two) times a week. 4 Active LORazepam (ATIVAN) 0.5 mg tablet Take 1 tablet (0.5 mg total) by mouth every 6 (six) hours if needed for anxiety. 4 Active thiamine 100 mg tablet Take 1 tablet (100 mg total) by mouth 1 (one) time each day. for 90 days 4 Active omeprazole (PriLOSEC) [address] capsule Take 1 capsule (20 mg total) by mouth 1 (one) time each day. Do not crush or chew. 30 each 3 5 11/28/19 26 Active Active Problems Problem Noted Date Diagnosed Date Abdominal bloating 06/20/2024 Abdominal cramping 06/20/2024 Abdominal pain 06/20/2024 Overview (06/20/2024): S/p CN andEG- normal Epigastric discomfort 06/20/2024 Fatty liver 06/20/2024 Anxiety 01/24/2016 Hypercholesterolemia 01/21/2016 Major depression 08/09/2014 Overview (06/20/2024): Previously following at [facility] Encounters Date Type Department Care Team Description 04/27/2025 7:30 PM EST - 04/27/2025 11:59 PM EST Hospital Encounter [facility] MRI [address] [place] [address] Radiculopathy, lumbar region Discharge Disposition: Home or Self Care 04/27/2025 9:00 AM EST Lab Draw Station - [address] [facility] [address] [place] [id number] Screening for thyroid disorder (Primary Dx); Routine general medical examination at a health care facility; Avitaminosis D; Screening for diabetes mellitus; Screening for lipoid disorders; Prediabetes; Abnormal finding of blood chemistry, unspecified from Last 3 Months Immunizations Immunization Administration Dates Next Due Influenza Quadravalent, MDCK , 0.5ml, preservative free (Flucelvax) 6mo and older 03/12/2020 Tdap Tetanus diptheria acell ular pertussis (Boostrix; Adacel) 7yo and older 08/09/2014 Surgical History Surgery Date Site/Laterality Comments SECTION 09/2012 PROCEDURE: HISTORICAL DELIVERY BREAST SURGERY 08/22/2017 Left PROCEDURE: NC UNLISTED PROCEDURE BREAST; COMMENT: cyst removed ESOPHAGOGASTRODUODENOSCOPY PROCEDURE: NC EGD TRANSORAL BIOPSY SINGLE/MULTIPLE; COMMENT: Performed March 2020 with colonoscopy COLONOSCOPY PROCEDURE: HISTORICAL COLONOSCOPY; COMMENT: Performed March 2020 with EGD Medical History Medical History Date Comments Depression 09/2013 DX:Depression; C OMMENT: ; Asthma DX:Asthma; COMME NT: childhood Abdominal pain DX:Abdominal zach n Abdominal cramping DX:Abdominal cramping Abdominal bloating DX:Abdominal bloating Epigastric discomfort DX:Epigast ruddy discomfort Anxiety DX:Anxiety Fatty liver DX:Fatty liver Family History Medical History Relation Name Comments Hypertension Father Lung cancer Maternal Grandmother d Depression Mother's side multiple relat josé miguel Heart attack Paternal Grandfather ? strok e; Hypertension Paternal Grandmother Breast cancer Neg Hx Relation Name Status Comments Brother Alive Father Alive Maternal Grandfather Alive Maternal Grandmother Mother Alive Mother's side Paternal Grandfather Paternal Grandmother Alive Sister 1 Alive Sister 2 Alive Son Alive Social History Tobacco Use Types Packs/Day Years Used Date Smoking Tobacco: Former Cigarettes Smokeless Tobacco: Never Alcohol Use Standard Drinks/Week Comments Not Currently 1.7 (1 standard drink = 0.6 oz p ure alcohol) Comments Unknown Sex and Gender Information Value Date Recorded Sex Assigned at Female 07/04/2024 11:00 AM EST Legal Sex Female 2:07 AM EST Gender Identity Female 07/04/2024 11:00 AM EST Sexual Orientation Straight 07/04/2024 11 :00 AM EST Last Filed Vital Signs Vital Sign Reading Time Taken Comments Blood Pressure 100/72 11/27/2024 1:51 PM EDT Pulse 101 11/27/2024 1:51 PM EDT Temperature - - Respiratory Rate - - Oxygen Saturation 97% 11/27/2024 1:51 PM EDT Inhaled Oxygen Concentration - - Weight 88.5 kg (195 lb) 11/27/2024 1:51 PM EDT Height 162.6 cm (5' 4 ) 11/27/2024 1:51 PM EDT Body Mass Index 33.47 11/27/2024 1:51 PM EDT Plan of Treatment Upcoming Encounters Date Type Department Care Team (Late st Contact Info) Description 05/30/2025 2:00 PM EST Office Visit Gastroenterology - [address] [facility] [address] [place] [id number] [place] [address] [facility] [address] [place] [address] Health Maintenance Due Date Last Done Comments Colorectal Cancer Screening: Colonoscopy 1975 Drug Screen 1975 Non-Opioid Controlled Substance Agreement 1975 Hepatitis A Vaccines (1 of 2 - Risk 2-dose series) 09/07/1995 Hepatitis B Vaccines (1 of 3 - 19+ 3-dose series) 09/07/1995 Cervical Cancer Screening: Pap Smear 10/05/2021 10/05/2018, 10/03/2018 HIV Screening 05/02/2022 Hepatitis C Screening 05/02/2022 Medicare Annual Wellness Visit 05/02/2022 Social Influencers of Health Screening 05/02/2022 Depression Screening 05/24/2024 COVID-19 Vaccine ( season) 2025 10/29/2020, 10/01/2020 Influenza Vaccine (#1) 2025 4, 03/09/2022, 03/07/2021, Additional history exists Breast Cancer Screening 03/14/2026 03/14/20 24, 10/02/2019, 09/29/2019, Additional history exists Cholesterol Screening (Lipid Panel) 04/27/2030 04/27/2025, 08/23/2024, 06/22/2024, Additional history exists DTaP,Tdap,and Td Vaccines (3 - Td or Tdap) 12/02/2032 12/02/2022, 08/09/2014 RSV Immunization Adult Patients (1 - 1-dose 75+ series) 09/07/2051 MMR Vaccines Aged Out 03/19/2021 No longer eligi ble based on patient's age to complete this topic HIB Vaccines Aged Out No longer eligi ble based on patient's age to complete this topic HPV Vaccines Aged Out No longer eligi ble based on patient's age to complete this topic IPV Vaccines Aged Out No longer eligi ble based on patient's age to complete this topic Meningococcal ACWY Vaccine Aged Out N o longer eligible based on patient's age to complete this topic Meningococcal B Vaccine Aged Out No l onger eligible based on patient's age to complete this topic Pneumococcal Vaccine: Pediatrics (0 to 5 Years) and At-Risk Patients (6 to 49 Years) Aged Out No longer eligible based on patient's age to complete this topic RSV Immunization Patients Under 20 months Aged Out No longer eligible based on patient's age to complete this topic Varicella Vaccines Aged Out No longer eligible based on patient's age to complete this topic Procedures Procedure Name Priority Date/Time Associated Diagnosis Comments MR LUMBAR SPINE WO CONTRAST Routine 04/27/2025 8:47 PM EST Radiculopathy, lumbar region URINALYSIS WITH REFLEX MICROSCOPIC Routine 04/27/2025 9:08 AM EST Screening for thyroid disorder Routine general medical examination at a health care facility [facility] Screening for diabetes mellitus Screening for lipoid disorders URINALYSIS WITH REFLEX MICROSCOPIC Routine 04/27/2025 9:08 AM EST Screening for thyroid disorder Routine general medical examination at a health care facility [facility] Screening for diabetes mellitus Screening for lipoid disorders CBC WITH AUTO DIFFERENTIAL Routine 04/27/2025 9:02 AM EST Screening for thyroid disorder Routine general medical examination at a [facility] for diabetes mellitus Screening for lipoid disorders CBC AND DIFFERENTIAL Routine 04/27/2025 9:02 AM EST Screening for thyroid disorder Routine [facility] for diabetes mellitus Screening for lipoid disorders LIPID PANEL WITH REFLEX TO DIRECT LDL Routine 04/27/2025 9:02 AM EST Screening for thyroid disorder Routine general medical examination at a [facility] D Screening for diabetes mellitus Screening for lipoid disorders Prediabetes Abnormal finding of blood chemistry, unspecified COMPREHENSIVE METABOLIC PANEL Routine 04/27/2025 9:02 AM EST Screening for thyroid disorder Routine [facility] D Screening for diabetes mellitus Screening for lipoid disorders THYROID STIMULATING HORMONE Routine 04/27/2025 9:02 AM EST Screening for thyroid disorder Routine [facility] Screening for diabetes mellitus Screening for lipoid disorders Prediabetes RADHA SCREENING DIGITAL Routine 03/14/2024 3:59 PM EDT HM PAP SMEAR Routine 10/05/2018 from Last 3 Months or Most Recently Relevant to Health Maintenance Results * MR Lumbar Spine wo Contrast (04/27/2025 8:47 PM EST) Anatomical Region Laterality Modality L-spine, Spine Magnetic Resonan ce 05/03/2025 3:32 AM EST Impressions 05/03/2025 3:36 AM EST Multilevel lumbar spondylosis, as above, most prominent at L4-L5. -------- FINAL REPORT -------- Dictated By: Yessica Keene Dictated Date: 05/03/2025 03:32 ET Assigned Physician: Yessica Keene Reviewed and Electronically Signed By: Yessica Keene Signed Date: 05/03/2025 03:36 ET Workstation ID: [id number] Transcribed By: Self Edit Transcribed Date: 05/03/2025 03:32 ET Narrative 05/03/2025 3:36 AM EST INDICATION: Left lumbar radiculopathy COMPARISON: None TECHNIQUE: Multiplanar, multisequence MRI was performed of the lumbar spine without IV contrast. FINDINGS: Study assumes 5 lumbar type vertebral bodies. Vertebral body heights are maintained. Grade 1 retrolisthesis of L2 on L3, L3 on L4 and L4 on L5. Conus terminates at L1. Bone marrow signal is heterogeneous. Cord signal is unremarkable. Multilevel disc desiccation. Multilevel anterior marginal osteophytes. Specific findings are seen at the following levels: T12-L1:No significant spinal canal stenosis or neural foraminal narrowing on sagittal view L1-L2:Mild diffuse disc bulge with facet arthropathy which results in mild left- sided neural foraminal narrowing. No significant spinal canal stenosis. L2-L3:Diffuse disc bulge with ligamentum flavum infolding and facet arthropathy which effaces the ventral thecal sac without significant spinal canal stenosis. Mild left-sided neural foraminal narrowing. L3-L4:Diffuse disc bulge with facet arthropathy which effaces the ventral thecal sac without significant spinal canal stenosis. Mild to moderate left and mild right neural foraminal narrowing. L4-L5:Diffuse disc bulge with ligamentum flavum infolding and facet arthropathy which effaces the ventral thecal sac and results in mild to moderate spinal canal stenosis and moderate left and mild right neural foraminal narrowing. Possible annular fissure. L5-S1:Diffuse disc bulge with facet arthropathy without significant spinal canal stenosis. Mild left-sided neural foraminal narrowing. Miscellaneous: Visualized SI joints, paraspinal muscles and retroperitoneum are unremarkable. Procedure Note Yessica Keene MD - 05/03/2025 INDICATION: Left lumbar radiculopathy COMPARISON: None TECHNIQUE: Multiplanar, multisequence MRI was performed of the lumbarspine without IV contrast. FINDINGS: Study assumes 5 lumbar type vertebral bodies. Vertebral body heights aremaintained. Grade 1 retrolisthesis of L2 on L3, L3 on L4 and L4 on L5.Conus terminates at L1. Bone marrow signal is heterogeneous. Cord signalis unremarkable. Multilevel disc desiccation. Multilevel anteriormarginal osteophytes. Specific findings are seen at the followinglevels: T12-L1:No significant spinal canal stenosis or neural foraminal narrowingon sagittal view L1-L2:Mild diffuse disc bulge with facet arthropathy which results in mildleft- sided neural foraminal narrowing. No significant spinal canalstenosis. L2-L3:Diffuse disc bulge with ligamentum flavum infolding and facetarthropathy which effaces the ventral thecal sac without significantspinal canal stenosis. Mild left-sided neural foraminal narrowing. L3-L4:Diffuse disc bulge with facet arthropathy which effaces the ventralthecal sac without significant spinal canal stenosis. Mild to moderateleft and mild right neural foraminal narrowing. L4-L5:Diffuse disc bulge with ligamentum flavum infolding and facetarthropathy which effaces the ventral thecal sac and results in mild tomoderate spinal canal stenosis and moderate left and mild right neuralforaminal narrowing. Possible annular fissure. L5-S1:Diffuse disc bulge with facet arthropathy without significant spinalcanal stenosis. Mild left-sided neural foraminal narrowing. Miscellaneous: Visualized SI joints, paraspinal muscles andretroperitoneum are unremarkable. IMPRESSION: Multilevel lumbar spondylosis, as above, most prominent at L4-L5. -------- FINAL REPORT -------- Dictated By: Yessica Keene Dictated Date: 05/03/2025 03:32 ET Assigned Physician: Yessica Keene Reviewed and Electronically Signed By: Yessica Keene Signed Date: 05/03/2025 03:36 ET Workstation ID: [id number] Transcribed By: Self Edit Transcribed Date: 05/03/2025 03:32 ET us Yayo Mitchell WIRE WINDING MACHINE OPERATOR IMG MRI PROCEDURES Final Resu lt * (ABNORMAL) Urinalysis with reflex microscopic (04/27/2025 9:08 AM EST) Pathologist [facility] Specific [place] Urine 1.017 1.003 - 1.030 LAB URINALYSIS - AUTOMATED METHOD 04/27/2025 10:34 AM [facility] pH, Urine 7.5 5.0 - 8.0 pH LAB URINALYSIS - AUTOMATED METHOD 04/27/2025 10:34 AM [facility] Leukocytes, Urine Small(A) Negative LAB URINALYSIS - AUTOMATED METHOD 04/27/2025 10:34 AM [facility] Nitrite, Urine Negative Negative LAB URINALYSIS - AUTOMATED METHOD 04/27/2025 10:34 AM [facility] Protein, Urine Negative <=Trace mg/dL LAB URINALYSIS - AUTOMATED METHOD 04/27/2025 10:34 AM [facility] Glucose, Urine Negative Negative mg/dL LAB URINALYSIS - AUTOMATED METHOD 04/27/2025 10:34 AM [facility] Ketones, Urine Negative Negative mg/dL LAB URINALYSIS - AUTOMATED METHOD 04/27/2025 10:34 AM [facility] Urobilinogen, Urine 0.2 0.2 - 1.0 mg/dL LAB URINALYSIS - AUTOMATED METHOD 04/27/2025 10:34 AM [facility] Bilirubin, Urine Negative Negative LAB URINALYSIS - AUTOMATED METHOD 04/27/2025 10:34 AM [facility] Blood, Urine Negative Negative LAB URINALYSIS - AUTOMATED METHOD 04/27/2025 10:34 AM [facility] RBC, Urine 3 0 - 4 /HPF 04/27/2025 10:34 AM [facility] WBC, Urine 20(H) 0 - 4 /HPF 04/27/2025 10:34 AM [facility] Squamous Epithelial, Urine >100(H) 0 - 60 /LPF 04/27/2025 10:34 AM [facility] Bacteria, Urine Negative Negative /HPF 04/27/2025 10:34 AM [facility] Urine Urine specimen obtained by clean catch procedure / Unknown Non-blood Collection / Unknown 04/27/2025 9:08 AM EST 04/27/2025 9:56 AM EST us Yayo Mitchell NP LAB URINE ORDERABLES Final Re sult [facility] [address] [place] [address], [place] [phone] * (ABNORMAL) Lipid panel with reflex to direct LDL (04/27/2025 9:02 AM EST) Cholesterol 248(H) 0 - 200 mg/dL 04/27/2025 10:53 AM [facility] Triglycerides 257(H) 0 - 150 mg/dL 04/27/2025 10:53 AM [facility] HDL 63 >=40 mg/dL 04/27/2025 10:53 AM [facility] LDL Calculated 134(H) 0 - 100 mg/dL 04/27/2025 10:53 AM [facility] Comment:Estimated LDL Calcul ated using equation: Total cholesterol - HDL cholesterol - (Triglycerides/5) VLDL Cholesterol Sachin 51.4 mg/dL 04/27/2025 10:53 AM [facility] Non HDL Chol. (LDL+VLDL) 185(H) <145 mg/dL 04/27/2025 10:53 AM [facility] Chol/HDL Ratio 3.9 0.0 - 4.4 04/27/2025 10:53 AM [facility] Blood Venous blood specimen / Unknown Venipuncture / Unknown 04/27/2025 9:02 AM EST 04/27/2025 9:54 AM EST us Yayo Mitchell WIRE WINDING MACHINE OPERATOR LAB BLOOD ORDERABLES Final Re sult [facility] [address] [place] [address], [place] [phone] * CBC auto differential (04/27/2025 9:02 AM EST) WBC 9.9 4.8 - 10.8 K/[facility] LAB HEMETOLOGY METHOD 04/27/2025 10:09 AM [facility] RBC 4.60 3.80 - 4.80 M/mcL LAB HEMETOLOGY METHOD 04/27/2025 10:09 AM [facility] Hemoglobin 13.7 11.5 - 16.0 g/dL LAB HEMETOLOGY METHOD 04/27/2025 10:09 AM [facility] Hematocrit 39.2 35.0 - 47.0 % LAB HEMETOLOGY METHOD 04/27/2025 10:09 AM [facility] MCV 85.4 79.0 - 98.0 FL LAB HEMETOLOGY METHOD 04/27/2025 10:09 AM [facility] MCH 29.8 27.0 - 32.0 pcg LAB HEMETOLOGY METHOD 04/27/2025 10:09 AM [facility] MCHC 34.9 32.0 - 37.0 g/dL LAB HEMETOLOGY METHOD 04/27/2025 10:09 AM [facility] RDW 12.2 11.0 - 15.0 % LAB HEMETOLOGY METHOD 04/27/2025 10:09 AM [facility] Platelets 380 130 - 400 K/mcL LAB HEMETOLOGY METHOD 04/27/2025 10:09 AM [facility] MPV 9.7 7.0 - 11.0 FL LAB HEMETOLOGY METHOD 04/27/2025 10:09 AM [facility] NRBC 0.0 <1.0 % LAB HEMETOLOGY METHOD 04/27/2025 10:09 AM [facility] NRBC Absolute 0.00 <0.10 K/mcL LAB HEMETOLOGY METHOD 04/27/2025 10:09 AM [facility] Neutrophils Relative 56.6 % LAB HEMETOLOGY METHOD 04/27/2025 10:09 AM [facility] Lymphocytes Relative 34.5 % LAB HEMETOLOGY METHOD 04/27/2025 10:09 AM [facility] Monocytes Relative 5.3 % LAB HEMETOLOGY METHOD 04/27/2025 10:09 AM [facility] Eosinophils Relative 2.8 % LAB HEMETOLOGY METHOD 04/27/2025 10:09 AM [facility] Basophils Relative 0.5 % LAB HEMETOLOGY METHOD 04/27/2025 10:09 AM [facility] Immature Granulocytes Relative 0.3 % LAB HEMETOLOGY METHOD 04/27/2025 10:09 AM [facility] Neutrophils Absolute 5.58 1.50 - 7.00 K/mcL LAB HEMETOLOGY METHOD 04/27/2025 10:09 AM [facility] Lymphocytes Absolute 3.40 1.00 - 5.00 K/mcL LAB HEMETOLOGY METHOD 04/27/2025 10:09 AM [facility] Monocytes Absolute 0.52 0.20 - 1.00 K/mcL LAB HEMETOLOGY METHOD 04/27/2025 10:09 AM [facility] Eosinophils Absolute 0.28 0.00 - 0.50 K/mcL LAB HEMETOLOGY METHOD 04/27/2025 10:09 AM [facility] Basophils Absolute 0.05 0.00 - 0.20 K/mcL LAB HEMETOLOGY METHOD 04/27/2025 10:09 AM [facility] Immature Granulocytes Absolute 0.03 0.00 - 0.03 K/mcL LAB HEMETOLOGY METHOD 04/27/2025 10:09 AM [facility] Blood Venous blood specimen / Unknown Venipuncture / Unknown 04/27/2025 9:02 AM EST 04/27/2025 9:55 AM EST us Yayo Mitchell NP LAB BLOOD ORDERABLES Final Re sult [facility] [address] [place] [address], [place] [phone] * Thyroid stimulating hormone (04/27/2025 9:02 AM EST) Pathologist [facility] TSH 2.84 0.40 - 4.00 mcIU/mL 04/27/2025 10:50 AM [facility] Blood Venous blood specimen / Unknown Venipuncture / Unknown 04/27/2025 9:02 AM EST 04/27/2025 9:54 AM EST us Yayo Mitchell WIRE WINDING MACHINE OPERATOR LAB BLOOD ORDERABLES Final Re sult [facility] [address] [place] [address], [place] [phone] * (ABNORMAL) Comprehensive metabolic panel (04/27/2025 9:02 AM EST) [facility] Sodium 141 133 - 145 mmol/L 04/27/2025 10:53 AM [facility] Potassium 4.0 3.5 - 5.5 mmol/L 04/27/2025 10:53 AM [facility] Chloride 102 96 - 110 mmol/L 04/27/2025 10:53 AM [facility] CO2 30 21 - 32 mmol/L 04/27/2025 10:53 AM [facility] Anion Gap 9 3 - 11 04/27/2025 10:53 AM [facility] Glucose 85 70 - 100 mg/dL 04/27/2025 10:53 AM [facility] BUN 10 5 - 25 mg/dL 04/27/2025 10:53 AM [facility] Creatinine 0.61 0.50 - 1.10 mg/dL 04/27/2025 10:53 AM [facility] eGFR 110 >=60 mL/min/1. 73m2 04/27/2025 10:53 AM [facility] Comment:Calculation based on the Chronic Kidney Disease Epidemiology Collaboration (CKD-EPI) equation refit without adjustment for race. BUN/Creatinine Ratio 16.4 04/27/2025 10:53 AM [facility] Calcium 9.8 8.5 - 10.5 mg/dL 04/27/2025 10:53 AM [facility] AST (SGOT) 33 10 - 42 unit/L 04/27/2025 10:53 AM [facility] ALT (SGPT) 45 10 - 60 unit/L 04/27/2025 10:53 AM [facility] Alkaline Phosphatase 123(H) 42 - 121 unit/L 04/27/2025 10:53 AM [facility] Total Protein 6.7 6.0 - 8.0 g/dL 04/27/2025 10:53 AM [facility] Albumin 4.5 3.2 - 5.0 g/dL 04/27/2025 10:53 AM [facility] Total Bilirubin 0.5 0.0 - 1.4 mg/dL 04/27/2025 10:53 AM [facility] Blood Venous blood specimen / Unknown Venipuncture / Unknown 04/27/2025 9:02 AM EST 04/27/2025 9:54 AM EST us Yayo Mitchell WIRE WINDING MACHINE OPERATOR LAB BLOOD ORDERABLES Final Re sult [facility] [address] [place] [address], * RADHA SCREENING DIGITAL (03/14/2024 3:59 PM EDT) Anatomical Region Laterality Modality Mammography 03/14/2024 2:10 PM EDT Narrative 03/14/2024 3:59 PM EDT [facility] Diagnostic Imaging Department [address] [place] [address] Patient: JULY BROWN /Age/Sex: 1975 - 48 - F Unit#: [id number] Location/Status: SPDIMAM/REG CLI Mnemonic/Ordering Site: [facility] Ordering Physician: YAYO MITCHELL WIRE WINDING MACHINE OPERATOR [facility] Screening Digital - 03/14/24 - [id number] Report Status:Signed EXAM: [facility] Screening Digital EXAM DATE AND TIME: 03/14/2024 2:48 PM HISTORY: Annual screening COMPARISON: 10/02/2019 and 09/29/2019 TECHNIQUE: Bilateral digital breast tomosynthesis was performed in the CC and MLO projections. Computer aided detection with [employer] 7.2-H and [employer] 3D 3.1 was employed. TISSUE DENSITY: b. There are scattered areas of fibroglandular density. FINDINGS: No suspicious masses, grouped microcalcifications, or areas of architectural distortion are seen. The skin and vascularity are unremarkable. IMPRESSION: Stable mammographic appearance of the breasts. No evidence of malignancy is seen. A negative mammogram in the presence of a clinically suspicious palpable abnormality does not preclude the possibility of malignancy or alter the indications for biopsy. BI-RADS: Category 1: Negative RECOMMENDATION(S): 1: Routine screening mammogram BILATERAL in 1 year. Dictating Physician: DALE WATERS MD Electronically Signed by: DALE WATERS MD Dic Date/Time: 03/14/24 1024 Sign date/Time: 03/14/24 639 Procedure Note Dale Waters MD - 03/21/2024 [facility] Diagnostic Imaging Department [address] [place] [id number] Patient: JULY BROWN /Age/Sex: 1975 - 48 - F Unit#: [id number] [facility]Ordering Site[facility] Ordering Physician: YAYO MITCHELL WIRE WINDING MACHINE OPERATOR [facility] Screening Digital - 03/14/24 - [id number] Report Status:Signed EXAM: [facility] Screening Digital EXAM DATE AND TIME: 03/14/2024 2:48 PM HISTORY: Annual screening COMPARISON: 10/02/2019 and 09/29/2019 TECHNIQUE: Bilateral digital breast tomosynthesis was performed in the [employer] MLO projections. Computer aided detection with [employer] 7.2[employer]H [employer] AI 3D 3.1 was employed. TISSUE DENSITY: b. There are scattered areas of fibroglandular density. FINDINGS: No suspicious masses, grouped microcalcifications, or areas ofarchitectural distortion are seen. The skin and vascularity are unremarkable. IMPRESSION: Stable mammographic appearance of the breasts. No evidence of malignancyis seen. A negative mammogram in the presence of a clinically suspicious palpable abnormality does not preclude the possibility of malignancy or alter the indications for biopsy. BI-RADS: Category 1: Negative RECOMMENDATION(S): 1: Routine screening mammogram BILATERAL in 1 year. Dictating Physician: DALE WATERS MD Electronically Signed by: DALE WATERS MD Dic Date/Time: 03/14/24 1558 Sign date/Time: 03/14/24 1559 us Yayo Mitchell WIRE WINDING MACHINE OPERATOR IMG BI PROCEDURES Final Resul t * Hm Pap Smear (10/05/2018) Pap smear Negative, Abstracted us Historical Provider HEALTH MAINTENANCE Final Result from Last 3 Months or Most Recently Relevant to Health Maintenance Insurance [employer] MEDICARE ADVANTAGE [place]ICA[place] Care Teams Bricklayer Sewer Relationship Specialty Start Date End Date Stanislaw Haynes MD [address] [place] [id number] PCP - General Internal Medicine 06/16/24
--- OUTSIDE RECORDS SUMMARY | 2025-05-16 13:58 | XMS_ITS | Patient Health Record ---
Author Organization [facility] [address] Address [address] [place] [address] Care Team Providers Care Coin Collector Name Role Phone HIRENYAYO WANRER Unavailable [phone] JOSEE MULLINS Unavailable [phone] JONAS ALY Unavailable [phone] Normoyle, Zenaida Unavailable [phone] Allergies Allergen (clinical drug ingredient) Drug/Non Drug Allergy documented on EMR Reaction Allergy Type Onset Date Status aspirin Aspirin Unknown Drug Allergy Active Penicillin Unknown Drug Allergy Active Results Component Value Reference Range Flag Notes XR UGI W AIR CONTRAST Reviewed date:08/30/2024 01:59:00 PM Interpretation: Performing Lab: Notes/Report: Note See Note [facility], a member of [employer] Patient Name: JULY BROWN Date of : 1975 Reason for Exam: Abd pain, unspecified Exam Date: 08/29/2024 [id number] EST Report Status: Final Ordering Provider: YESSICA VARGAS PCP: JOSEE MULLINS FINDINGS: Double contrast UGI performed. COMPARISON: No prior upper GI imaging. HISTORY: Patient is a 48-year-old female with history of GERD, generalized abdominal pain. Bloating. 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 Bowel gas pattern is nonobstructive. Visualized lung bases appear clear. Osseous structures are overall unremarkable. FINDINGS: Effervesce nt crystals were administered orally. Thick and thin barium was then administered orally under fluoroscopic control. Esophagus: Normal distensibility, motility and mucosal pattern. There is no evidence of obstruction or hiatal hernia. Stomach: Normal distensibility and motility. Prompt passage of contrast from the stomach into the duodenal bulb and sweep. No gastric mass or ulceration. Visualization of proximal small bowel is within normal limits. Gastroesophageal reflux: Small amount of spontaneous gastroesophageal reflux visualized DAP: 12.32 Gycm^2 IMPRESSION: Small amount spontaneous gastroesophageal reflux, otherwise normal double contrast upper GI examination. -------- FINAL REPOR T -------- Dictated By: Gita Garvin Dictated Date: 08/29/2024 12:05 ET Assigned Physician: John Foote Reviewed and Electronically Signed By: John Foote Signed Date: 025 16:00 ET Workstation ID: [id number] Transcribed By: Self Edit Transcribed Date: 08/29/2024 12:08 ET Resident/PA/ELECTRICAL SOLDERER: Gita Barger MR LUMBAR SPINE WO CONTRAST Reviewed date:05/03/2025 07:59:53 AM Interpretation: Performing Lab: Notes/Report: See Note [facility], a member of [employer] INDICATION: Left lumbar radiculopathy COMPARISON: None TECHNIQUE: [...] joints, paraspinal muscles and retroperitoneum are unremarkable. IMPRESSION: Multilevel lumbar spondylosis, as above, most prominent at L4-L5. -------- FINAL REPORT -------- Dictated By: Yessica Keene Dictated Date: 05/03/2025 03:32 ET Assigned Physician: Yessica Keene Reviewed and Electronically Signed By: Yessica Keene Signed Date: 05/03/2025 03:36 ET Workstation ID: [id number] Transcribed By: Self Edit Transcribed Date: 05/03/2025 03:32 ET URINALYSIS WITH REFLEX MICRO SCOPIC Reviewed date:04/27/2025 01:01:10 PM Interpretation: Performing Lab: Notes/Report: Specific Sula Urine 1.017 1.003-1.030 pH, Urine 7.5 5.0-8.0 pH Leukocytes, Urine Small Negative A Nitrite, Urine Negative Negative Protein, Urine Negative <=Trace mg/dL Glucose, Urine Negative Negative mg/dL Ketones, Urine Negative Negative mg/dL Urobilinogen, Urine 0.2 0.2-1.0 mg/dL Bilirubin, Urine Negative Negative Blood, Urine Negative Negative RBC, Urine 3 0-4 /HPF WBC, Urine 20 0-4 /HPF H Squamous Epithelial, Urine >100 0-60 /LPF H Bacteria, Urine Negative Negative /HPF CBC WITH AUTO DIFFERENTIAL Reviewed date:04/27/2025 01:01:10 PM Interpretation: Performing Lab: Notes/Report: WBC 9.9 4.8-10.8 K/mcL RBC 4.60 3.80-4.80 M/mcL Hemoglobin 13.7 11.5-16.0 g/dL Hematocrit 39.2 35.0-47.0 % MCV 85.4 79.0-98.0 FL MCH 29.8 27.0-32.0 pcg MCHC 34.9 32.0-37.0 g/dL RDW 12.2 11.0-15.0 % Platelets 380 130-400 K/mcL MPV 9.7 7.0-11.0 FL NRBC 0.0 <1.0 % NRBC Absolute 0.00 <0.10 K/mcL Neutrophils Relative 56.6 Lymphocytes Relative 34.5 Monocytes Relative 5.3 Eosinophils Relative 2.8 Basophils Relative 0.5 Immature Granulocytes Relative 0.3 Neutrophils Absolute 5.58 1.50-7.00 K/mcL Lymphocytes Absolute 3.40 1.00-5.00 K/mcL Monocytes Absolute 0.52 0.20-1.00 K/mcL Eosinophils Absolute 0.28 0.00-0.50 K/mcL Basophils Absolute 0.05 0.00-0.20 K/mcL Immature Granulocytes Absolute 0.03 0.00-0.03 K/mcL HELICOBACTER PYLORI BREATH T EST Reviewed date:11/29/2024 02:55:41 PM Interpretation: Performing Lab: Notes/Report: H Pylori Breath Test Negative Negative HELICOBACTER PYLORI BREATH T EST Reviewed date:06/23/2024 09:16:37 AM Interpretation: Performing Lab: Notes/Report: H Pylori Breath Test Positive Negative A TISSUE TRANSGLUTAMINASE, IGA Reviewed date:06/30/2024 08:26:36 AM Interpretation: Performing Lab: Notes/Report: Tissue Transglutaminase Ab, IgA Quant 1 <4 unit/mL Tissue Transglutaminase Ab, IgA Negative Negative GLIADIN ANTIBODIES, SERUM Reviewed date:06/30/2024 08:26:36 AM Interpretation: Performing Lab: Notes/Report: Gliadin IgA 7 <20 units Gliadin IgG 3 <20 units Gliadin IgA Antibody Negative Negative Gliadin IgG Antibody Negative Negative HEPATIC FUNCTION PANEL Reviewed date:11/29/2024 03:12:10 PM Interpretation: Performing Lab: Notes/Report: Total Protein 7.8 6.0-8.0 g/dL Albumin 4.4 3.2-5.0 g/dL Total Bilirubin 0.2 0.0-1.4 mg/dL Bilirubin, Direct <0.1 0.0-0.3 mg/dL Bilirubin, Indirect See Report Unabl e to calculate Indirect Bilirubin. ALT (SGPT) 59 10-60 unit/L AST (SGOT) 25 10-42 unit/L Alkaline Phosphatase 139 42-121 unit/L H URINALYSIS WITH REFLEX MICRO SCOPIC Reviewed date:06/22/2024 10:46:41 AM Interpretation: Performing Lab: Notes/Report: Specific Sula Urine 1.020 1.003-1.030 pH, Urine 6.0 5.0-8.0 pH Leukocytes, Urine Negative Negative Nitrite, Urine Negative Negative Protein, Urine Negative <=Trace mg/dL Glucose, Urine Negative Negative mg/dL Ketones, Urine Negative Negative mg/dL Urobilinogen, Urine 0.2 0.2-1.0 mg/dL Bilirubin, Urine Negative Negative Blood, Urine Trace Negative A RBC, Urine 4 0-4 /HPF WBC, Urine 2 0-4 /HPF Squamous Epithelial, Urine 20 0-60 /LPF COMPREHENSIVE METABOLIC PANE L Reviewed date:06/22/2024 10:53:57 AM Interpretation: Performing Lab: Notes/Report: Sodium 137 133-145 mmol/L Potassium 4.8 3.5-5.5 mmol/L Hemolysis present Chloride 106 96-110 mmol/L CO2 23 21-32 mmol/L Anion Gap 8 3-11 Glucose 115 70-100 mg/dL H BUN 9 5-25 mg/dL Creatinine 0.63 0.50-1.10 mg/dL eGFR 110 >=60 mL/min/1.73m2 Calculation based on the?Chronic Kidney Disease Epidemiology Collaboration (CKD-EPI) equation refit?without adjustment for race. BUN/Creatinine Ratio 14.3 Calcium 9.6 8.5-10.5 mg/dL AST (SGOT) 55 10-42 unit/L H Hemolysis pr esent ALT (SGPT) 76 10-60 unit/L H Alkaline Phosphatase 130 42-121 unit/L H Total Protein 7.5 6.0-8.0 g/dL Albumin 4.1 3.2-5.0 g/dL Total Bilirubin 0.3 0.0-1.4 mg/dL COMPREHENSIVE METABOLIC PANE L Reviewed date:04/27/2025 01:01:10 PM Interpretation: Performing Lab: Notes/Report: Sodium 141 133-145 mmol/L Potassium 4.0 3.5-5.5 mmol/L Chloride 102 96-110 mmol/L CO2 30 21-32 mmol/L Anion Gap 9 3-11 Glucose 85 70-100 mg/dL BUN 10 5-25 mg/dL Creatinine 0.61 0.50-1.10 mg/dL eGFR 110 >=60 mL/min/1.73m2 Calculation based on the Chronic Kidney Disease Epidemiology Collaboration (CKD-EPI) equation refit without adjustment for race. BUN/Creatinine Ratio 16.4 Calcium 9.8 8.5-10.5 mg/dL AST (SGOT) 33 10-42 unit/L ALT (SGPT) 45 10-60 unit/L Alkaline Phosphatase 123 42-121 unit/L H Total Protein 6.7 6.0-8.0 g/dL Albumin 4.5 3.2-5.0 g/dL Total Bilirubin 0.5 0.0-1.4 mg/dL THYROID STIMULATING HORMONE Reviewed date:04/27/2025 01:01:10 PM Interpretation: Performing Lab: Notes/Report: TSH 2.84 0.40-4.00 mcIU/mL THYROID STIMULATING HORMONE Reviewed date:06/22/2024 10:46:41 AM Interpretation: Performing Lab: Notes/Report: TSH 1.07 0.40-4.00 mcIU/mL VITAMIN D 25 HYDROXY Reviewed date:06/22/2024 10:53:46 AM Interpretation: Performing Lab: Notes/Report: Vit D, 25-Hydroxy 15.8 30.0-80.0 ng/mL L LIPID PANEL WITH REFLEX TO D IRECT LDL Reviewed date:06/22/2024 10:54:03 AM Interpretation: Performing Lab: Notes/Report: Cholesterol 280 0-200 mg/dL H Triglycerides 139 0-150 mg/dL HDL 72 >=40 mg/dL LDL Calculated 180 0-100 mg/dL H VLDL Cholesterol Sachin 27.8 Non HDL Chol. (LDL+VLDL) 208 <145 mg/dL H Chol/HDL Ratio 3.9 0.0-4.4 LIPID PANEL WITH REFLEX TO D IRECT LDL Reviewed date:04/27/2025 01:01:10 PM Interpretation: Performing Lab: Notes/Report: Cholesterol 248 0-200 mg/dL H Triglycerides 257 0-150 mg/dL H HDL 63 >=40 mg/dL LDL Calculated 134 0-100 mg/dL H Estimated LDL Calculated using equation: Total cholesterol - HDL cholesterol - (Triglycerides/5) VLDL Cholesterol Sachin 51.4 Non HDL Chol. (LDL+VLDL) 185 <145 mg/dL H Chol/HDL Ratio 3.9 0.0-4.4 CBC WITH AUTO DIFFERENTIAL Reviewed date:06/22/2024 10:46:41 AM Interpretation: Performing Lab: Notes/Report: WBC 9.4 4.8-10.8 K/mcL RBC 4.60 3.80-4.80 M/mcL Hemoglobin 13.8 11.5-16.0 g/dL Hematocrit 40.7 35.0-47.0 % MCV 89.1 79.0-98.0 FL MCH 30.2 27.0-32.0 pcg MCHC 33.9 32.0-37.0 g/dL RDW 14.0 11.0-15.0 % Platelets 377 130-400 K/mcL MPV 10.2 7.0-11.0 FL NRBC 0.0 <1.0 % NRBC Absolute 0.00 <0.10 K/mcL Neutrophils Relative 61.1 Lymphocytes Relative 29.1 Monocytes Relative 5.8 Eosinophils Relative 3.1 Basophils Relative 0.5 Immature Granulocytes Relative 0.4 Neutrophils Absolute 5.72 1.50-7.00 K/mcL Lymphocytes Absolute 2.72 1.00-5.00 K/mcL Monocytes Absolute 0.54 0.20-1.00 K/mcL Eosinophils Absolute 0.29 0.00-0.50 K/mcL Basophils Absolute 0.05 0.00-0.20 K/mcL Immature Granulocytes Absolute 0.04 0.00-0.03 K/mcL H ENDOMYSIAL ANTIBODY, IGA Reviewed date:06/30/2024 08:26:49 AM Interpretation: Performing Lab: Notes/Report: Endomysial IgA Negative Negative IRON Reviewed date:08/23/2024 09:50:49 AM Interpretation: Performing Lab: Notes/Report: Iron 106 40-150 mcg/dL FERRITIN Reviewed date:08/23/2024 09:50:49 AM Interpretation: Performing Lab: Notes/Report: Ferritin 66 8-252 ng/mL COMPREHENSIVE METABOLIC PANE L Reviewed date:08/23/2024 09:52:09 AM Interpretation: Performing Lab: Notes/Report: Sodium 138 133-145 mmol/L Potassium 3.8 3.5-5.5 mmol/L Chloride 104 96-110 mmol/L CO2 26 21-32 mmol/L Anion Gap 8 3-11 Glucose 117 70-100 mg/dL H BUN 10 5-25 mg/dL Creatinine 0.66 0.50-1.10 mg/dL eGFR 109 >=60 mL/min/1.73m2 Calculation based on the?Chronic Kidney Disease Epidemiology Collaboration (CKD-EPI) equation refit?without adjustment for race. BUN/Creatinine Ratio 15.2 Calcium 9.9 8.5-10.5 mg/dL AST (SGOT) 25 10-42 unit/L ALT (SGPT) 58 10-60 unit/L Alkaline Phosphatase 133 42-121 unit/L H Total Protein 7.7 6.0-8.0 g/dL Albumin 3.9 3.2-5.0 g/dL Total Bilirubin 0.5 0.0-1.4 mg/dL LIPID PANEL WITH REFLEX TO D IRECT LDL Reviewed date:08/23/2024 10:03:36 AM Interpretation: Performing Lab: Notes/Report: Cholesterol 251 0-200 mg/dL H Triglycerides 155 0-150 mg/dL H HDL 74 >=40 mg/dL LDL Calculated 146 0-100 mg/dL H VLDL Cholesterol Sachin 31 Non HDL Chol. (LDL+VLDL) 177 <145 mg/dL H Chol/HDL Ratio 3.4 0.0-4.4 CBC WITH AUTO DIFFERENTIAL Reviewed date:08/23/2024 10:01:08 AM Interpretation: Performing Lab: Notes/Report: WBC 11.2 4.8-10.8 K/mcL H RBC 4.50 3.80-4.80 M/mcL Hemoglobin 13.4 11.5-16.0 g/dL Hematocrit 39.2 35.0-47.0 % MCV 87.7 79.0-98.0 FL MCH 30.0 27.0-32.0 pcg MCHC 34.2 32.0-37.0 g/dL RDW 13.7 11.0-15.0 % Platelets 388 130-400 K/mcL MPV 9.4 7.0-11.0 FL NRBC 0.0 <1.0 % NRBC Absolute 0.00 <0.10 K/mcL Neutrophils Relative 57.7 Lymphocytes Relative 34.9 Monocytes Relative 4.5 Eosinophils Relative 1.8 Basophils Relative 0.5 Immature Granulocytes Relative 0.6 Neutrophils Absolute 6.45 1.50-7.00 K/mcL Lymphocytes Absolute 3.90 1.00-5.00 K/mcL Monocytes Absolute 0.50 0.20-1.00 K/mcL Eosinophils Absolute 0.20 0.00-0.50 K/mcL Basophils Absolute 0.06 0.00-0.20 K/mcL Immature Granulocytes Absolute 0.07 0.00-0.03 K/mcL H HEMOGLOBIN A1C Reviewed date:06/22/2024 03:03:10 PM Interpretation: Performing Lab: Notes/Report: Hemoglobin A1C 4.8 <6.5 % Mean Bld Glu Estim. 91 Reason For Referral Reason Colonoscopy Diagnosis 1 Colon cancer screeni ng (Z12.11) Referral Organization [facility] [address] Referring Provider First Name YAYO Referring Provider Last Name [facility] Referring Provider Speciality Internal M edicine Referred Provider Caitlin HANNAH Referred Provider Specialty Gastroentero logy General Notes Natalie Benson 06/16/2024 10:15:10 AM > Referral faxed, pt given info to call and schedule visit, Clinical Notes Nelda Medina 09/2024 03:01:22 PM > The patient was seen on 06/21/24 Referral Priority Routine Reason breast reduction Diagnosis 1 Encounter for cosmet ic surgery (Z41.1) Referral Organization [facility] [address] Referring Provider First Name YAOY Referring Provider Last Name [facility] Referring Provider Speciality Internal edicine Referred Provider Specialty Plastic and Reconstructive Surgery General Notes Natalie Benson 06/16/2024 11:10:23 AM > Referral with form faxed to [facility] Clinical Notes Nelda Medina 04:13:00 PM > phone [phone], Adam Nelda 07/06/2024 04:15:26 PM > The office confirmed rceipt of referral, Nelda Medina 08/17/2024 03:46:06 PM > I called the office, and they informed me that they sent the referral back in June for criteria clarification but have not received a response from us., Usama Grady 08/29/2024 02:22:33 PM >refaxed to [facility] plastic surgery Dr. Hardin at fax # [phone] per pts request, Preston Medinabrenden 09/15/2024 01:58:18 PM > phone , AdamNelda 09/15/2024 02:01:01 PM > Spoke with [facility]. He stated that the BMI limit for surgery is 33, and the patient is currently above that. They contacted the patient on 08/30 to inform her, and she said she will call them once she meets the required BMI. Referral Priority Routine Reason evaluate & treat Diagnosis 1 Anxiety with depress ion (F41.8) Referral Organization [facility] [address] Referring Provider First Name YAYO Referring Provider Last Name [facility] Referring Provider Speciality Internal M edicine Referred Provider Specialty Mental healt h counseling General Notes KayleeBrendana 02/02 09:55:47 AM > faxed over to [facility] [employer] [address], , Clinical Notes Usama Grady 02/07 10:17:53 AM >refaxed referral again today Referral Priority Routine Reason chronic degenerative changes most prominent at L4-L5 Diagnosis 1 Degeneration of inte rvertebral disc of lumbar region, unspecified whether pain present (M51.369) Referral Organization [facility] [address] Referring Provider First Name YAYO Referring Provider Last Name LJ Referring Provider Speciality Internal edicine Referred Provider Specialty Pain Medicin e General Notes Emre virk , phone- [phone], fax- [phone] Clinical Notes Minda Meier 05/03 11:46:53 AM EST >, attached MRI results referral faxed pt is aware Referral Priority Routine Medications Medication SIG (Take, Route, Frequency, Duration) Notes Start Date End Date Status Mirtazapine 15 MG Tablet TAKE 1 TABLET B Y MOUTH EVERY DAY AT BEDTIME FOR 30 DAYS; Duration: 90 Active Vitamin D3 125 MCG (5000 UT) Capsule 1 capsule Orally Once a day; Duration: 90 days 04/23/2025 Active Escitalopram Oxalate 20 MG Tablet TAKE 1 TABLET BY MOUTH EVERY DAY FOR 90 DAYS; Duration: 90 Active Ezetimibe 10 MG Tablet TAKE 1 TABLET BY MOUTH EVERY DAY FOR 30 DAYS; Duration: 30 Active Vivitrol 380 MG Suspension Reconstituted INJECT 380MG INTO THE MUSCLE EVERY 28 DAYS; Duration: 28 Active Folic Acid 1 MG Tablet 1 tablet Orally O nce a day; Duration: 90 days 04/23/2025 Active Vitamin B12 100 MCG Tablet 1 tablet Oral ly daiy; Duration: 90 days 04/23/2025 Active Escitalopram Oxalate 5 MG Tablet 1 tablet Orally Once a day; Duration: 90 days 04/23/2025 Active Thiamine HCl 100 MG Tablet 1 tablet Oral ly Once a day; Duration: 90 days 04/23/2025 Active LORazepam 0.5 MG Tablet 1 tablet at bedt dottie as needed Orally nightly; Duration: 30 days 05/03/2025 Active Immunizations Vaccine Route Administration Date Status Comme nts influenza IM Intramuscular 03/09/2022 Administered influenza IM Intramuscular 04/21/2023 Administered Social History Tobacco Use: Social History Observation Description Date Details (start date - stop date) Current Smoker NA - NA Social History Drugs/Alcohol: Social Info Question Answer Notes Alcohol Screen (Audit-C) Did you have a drink containing alcohol in the past year? Yes How often did you have a drink containing alcohol in the past year? 2 to 3 times a week (3 points) Points 3 Interpretation Positive Drugs Have you used drugs other than those for medical reasons in the past 12 months? No Tobacco Use: Social Info Question Answer Notes Tobacco Use/Smoking Are you a current smoker How often do you smoke cigarettes? some days, but not every day How many cigarettes a day do you smoke? 5 or less Additional Details Category Social Info Options Details Drugs/Alcohol: Do you smoke marijuana? De nies Do you drink alcohol? No Problems Problem Type SNOMED Code ICD Code Onset Dates Problem Status W/U Status Risk Notes Problem Vitamin D deficiency (74603565) Vitamin D deficiency, unspecified (E55.9) Active confirmed Problem Mixed hyperlipidemia (759464391) Mixed hyperlipidemia (E78.2) Active confirmed Problem Alcohol abuse (63133147) Alcohol abuse, uncomplicated (F10.10) Active confirmed Problem Generalized anxiety disorder (96899676) Generalized anxiety disorder (F41.1) Active confirmed Problem Chronic pain (90609759) Other chronic pain (G89.29) Active confirmed Problem Essential hypertension (31336042) Essential (primary) hypertension (I10) Active confirmed Problem Lipid screening (532922700) Encounter for screening for lipoid disorders (Z13.220) Active confirmed Problem Cosmetic surgery (10873072) Encounter for cosmetic surgery (Z41.1) Active confirmed Problem Vitamin B12 deficiency (032689923) Vitamin B12 deficiency (E53.8) Active confirmed Problem Colon cancer screening (456676630) Colon cancer screening (Z12.11) Active confirmed Problem Anxiety (98856287) Anxiety (F41.9) Active confirmed Problem Adult health examination (827107921) Adult general medical exam (Z00.00) Active confirmed Problem Obese class I (finding) (966569089496360) Obesity (BMI 30.0-34.9) (E66.9) Active confirmed Problem Screening for malignant neoplasm of breast (345575492) Breast cancer screening by mammogram (Z12.31) Active confirmed Problem Numbness (28641061) Numbness (R20.0) Active confirmed Problem Fatty liver (169095736) Fatty liver (K76.0) Active confirmed Problem Diabetes mellitus screening (508448734) Diabetes mellitus screening (Z13.1) Active confirmed Problem Annual health maintenance examination (17387681) Encounter for annual health examination (Z00.00) Active confirmed Problem Chronic alcoholism in remission (783655972) Alcohol dependence in remission (F10.21) Active confirmed Problem Obese class I (849364108954153) BMI 33.0-33.9,adult (Z68.33) Active confirmed Problem Severe recurrent major depression without psychotic features (29164388) Severe episode of recurrent major depressive disorder, without psychotic features (F33.2) Active confirmed Problem Mild major depression, single episode (92823385) Current mild episode of major depressive disorder without prior episode (F32.0) Active confirmed Problem Paresthesia (76223237) Paresthesia (R20.2) Active confirmed Problem Ethanol abuse (53867302) ETOH abuse (F10.10) Active confirmed Problem Daytime somnolence (536767178441) Daytime somnolence (R40.0) Active confirmed Problem Avitaminosis D (31191663) Avitaminosis D (E55.9) Active confirmed Problem Thyroid disorder screening (232104592) Screening for thyroid disorder (Z13.29) Active confirmed Problem Anxiety depression (474915808) Anxiety with depression (F41.8) Active confirmed Problem Endocrine/metabol ic screening (035119900) Encounter for screening for endocrine disorder (Z13.29) Active confirmed Problem Lumbar radiculopathy (468999235) Left lumbar radiculopathy (M54.16) Active confirmed Problem Degeneration of lumbar intervertebral disc (disorder) (51588232) Degeneration of intervertebral disc of lumbar region, unspecified whether pain present (M51.369) Active confirmed Vital Signs Heart Rate 90 /min 04/24/2025 Oximetry 99 % 04/24/2025 Blood pressure diastolic 84 mm Hg 04/24/2025 Height 63 in 04/24/2025 Blood pressure systolic 142 mm Hg 04/24/2025 Weight 202 lbs 04/24/2025 BMI 35.78 kg/m2 04/24/2025 Encounters Encounter Location Date Provider Diagnosis [facility] [address] [facility] [address] [place] [address] 08/22/2024 YAYO BORHOT Alcohol abuse F10.10 [facility] [address] [address] 10/09/2024 YAYO BORHOT [facility] [address] [address] 11/20/2024 YAYO BORHOT Alcohol abuse F10.10 [facility] [address] [address] 12/22/2024 YAYO BORHOT [facility] [address] [address] 12/29/2024 YAYO BORHOT [facility] [address] [address] 03/29/2025 YAYO BORHOT Alcohol abuse F10.10 [facility] [address] [address] 04/25/2025 YAYO BORHOT Alcohol abuse F10.10 [facility] [address] [address] 06/16/2024 YAYO BORHOT Anxiety F41.9 ; Whitney re episode of recurrent major depressive disorder, without psychotic features F33.2 ; Alcohol abuse, uncomplicated F10.10 and Abdominal pain of unknown etiology R10.9 [facility] [address] [address] 08/16/2024 YAYO BORHOT Abdominal pain of un known etiology R10.9 ; Severe episode of recurrent major depressive disorder, without psychotic features F33.2 ; Elevated LFTs R79.89 ; Anxiety F41.9 ; Alcohol abuse, uncomplicated F10.10 ; Other chronic pain G89.29 ; Mixed hyperlipidemia E78.2 ; Fatty liver K76.0 and Palpitations R00.2 [facility] [address] 11/23/2024 YAYO BORHOT Anxiety F41.9 ; Whitney re episode of recurrent major depressive disorder, without psychotic features F33.2 ; Alcohol abuse, uncomplicated F10.10 ; Abdominal pain of unknown etiology R10.9 ; Elevated LFTs R79.89 ; Other chronic pain G89.29 ; Mixed hyperlipidemia E78.2 ; Fatty liver K76.0 and Encounter for examination of blood pressure without abnormal findings Z01.30 [facility] [address] 04/24/2025 YAYO BORHOT Anxiety F41.9 ; Alco hol abuse, uncomplicated F10.10 ; Severe episode of recurrent major depressive disorder, without psychotic features F33.2 ; Abdominal pain of unknown etiology R10.9 ; Elevated LFTs R79.89 ; Other chronic pain G89.29 ; Mixed hyperlipidemia E78.2 ; Fatty liver K76.0 ; Encounter for examination of blood pressure without abnormal findings Z01.30 and Left lumbar radiculopathy M54.16 [facility] [address] 06/08/2024 YAYO BORHOT [facility] [address] 06/16/2024 YAYO BORHOT [facility] [address] 06/21/2024 YAYO BORHOT [facility] [address] [place] [address] 08/14/2024 YAYO BORHOT [facility] [address] 08/17/2024 YAYO BORHOT [facility] [address] [address] 08/18/2024 TALAL MULLINS [facility] [address] [place] [address] 08/29/2024 YAYO BORHOT [facility] [address] 09/07/2024 YAYO BORHOT [facility] [address] 09/25/2024 TALAL MULLINS [facility] [address] [facility] [address] [place] [address] 09/25/2024 YAYO BORHOT Severe episode of recurrent major depressive disorder, without psychotic features F33.2 [facility] [address] [facility] [address] [place] [address] 10/03/2024 YAYO BORHOT [facility] [address] [facility] [address] [place] [address] 10/04/2024 YAYO BORHOT [facility] [address] [place] [address] 11/22/2024 YAYO BORHOT [facility] [address] [address] 12/14/2024 YAYO BORHOT [facility] [address] [address] [address] 12/20/2024 [facility] [address] [facility] [address] [place] [address] 01/23/2025 YAYO BORHOT Severe episode of recurrent major depressive disorder, without psychotic features F33.2 [facility] [address] [address] 02/01/2025 [facility] [address] [address] 02/03/2025 [facility] [address] [address] 02/16/2025 [facility] [address] [address] 03/28/[address] [facility] [address] [place] [address] 03/29/2025 [address] [facility] [address] [place] [address] 04/30/2025 [address] [address] [place] [address] 05/03/2025 YAYO BORHOT Severe episode of recurrent major depressive disorder, without psychotic features F33.2 Assessments Encounter Date Diagnosis (ICD Code) Assessment Notes Treatment Notes Treatment Clinical Notes Section Notes 06/16/2024 Anxiety (ICD-10 - F41.9) Acute Concerns/Problem List: 06/15/2024 Referral for colonoscopy update Referral to plastics for possible breast reduction given recurrent candidal infections and back pain Reinitiate her Vivitrol _update comprehensive labs Increase Lexapro to 20 mg Of note, some information is being carried forward from prior records for informational purposes only and is being cited so that efficiency, safety and quality of the patient's care is not compromised This note was prepared using voice recognition software and direct typing Please excuse inadvertent channel marketing specialist or typing errors, or uncorrected word substitutions Although every attempt has been made by the provider to proofread this document, occasional misspellings and typographical errors may still be present Due to the previous pandemic, and the use of personal protective equipment (PPE) This may decrease voice recognition accuracy Inadvertent channel marketing specialist errors may occur 08/16/2024 Abdominal pain of unknown etiology (ICD-10 - R10.9) Acute Concerns/Problem List: 08/16/2024 Continue Ezetimibe as prescribed, repeat lipid panel sent Nurse visit scheduled for her Vivitrol injections Discussed palpitations may be result of anxiety, patient sent for EKG today Holter monitor placed for 14 day monitoring, instructions and diary given to patient Echocardiogram order sent Follow-up with echo and lab results at next visit Of note, some information is being carried forward from prior records for informational purposes only and is being cited so that efficiency, safety and quality of the patient's care is not compromised This note was prepared using voice recognition software and direct typing Please excuse inadvertent channel marketing specialist or typing errors, or uncorrected word substitutions Although every attempt has been made by the provider to proofread this document, occasional misspellings and typographical errors may still be present Due to the previous pandemic, and the use of personal protective equipment (PPE) This may decrease voice recognition accuracy Inadvertent channel marketing specialist errors may occur 08/22/2024 Alcohol abuse (ICD-10 - F10.10) 09/25/2024 Severe episode of recurrent major depressive disorder, without psychotic features (ICD-10 - F33.2) 11/20/2024 Alcohol abuse (ICD-10 - F10.10) 11/23/2024 Anxiety (ICD-10 - F41.9) Acute Concerns/Problem List: 11/23/2024 Please resume and continue taking your Lexapro [...] software and direct typing Please excuse inadvertent channel marketing specialist or typing errors, or uncorrected word substitutions Although every attempt has been made by the provider to proofread this document, occasional misspellings and typographical errors may still be present Due to the previous pandemic, and the use of personal protective equipment (PPE) This may decrease voice recognition accuracy Inadvertent channel marketing specialist errors may occur 01/23/2025 Severe episode of recurrent major depressive disorder, without psychotic features (ICD-10 - F33.2) 03/29/2025 Alcohol abuse (ICD-10 - F10.10) 04/24/2025 Anxiety (ICD-10 - F41.9) Acute Concerns/Problem List: 04/24/2025 Lumbar spine MRI Discussed the importance of taking Lexapro on a regular basis She will return tomorrow to get her Vivitrol injection Ativan as needed Her last drink was almost a month ago She is due for updated labs including lipids Of note, some information is being carried forward from prior records for informational purposes only and is being cited so that efficiency, safety and quality of the patient's care is not compromised This note was prepared using voice recognition software and direct typing Please excuse inadvertent channel marketing specialist or typing errors, or uncorrected word substitutions Although every attempt has been made by the provider to proofread this document, occasional misspellings and typographical errors may still be present Due to the previous pandemic, and the use of personal protective equipment (PPE) This may decrease voice recognition accuracy Inadvertent channel marketing specialist errors may occur 04/25/2025 Alcohol abuse (ICD-10 - F10.10) 05/03/2025 Severe episode of recurrent major depressive disorder, without psychotic features (ICD-10 - F33.2) 04/24/2025 Alcohol abuse, uncomplicated (ICD-10 - F10.10) Acute Concerns/Problem List: 04/24/2025 Lumbar spine MRI Discussed the importance of taking Lexapro on a regular basis She will return tomorrow to get her Vivitrol injection Ativan as needed Her last drink was almost a month ago She is due for updated labs including lipids Of note, some information is being carried forward from prior records for informational purposes only and is being cited so that efficiency, safety and quality of the patient's care is not compromised This note was prepared using voice recognition software and direct typing Please excuse inadvertent channel marketing specialist or typing errors, or uncorrected word substitutions Although every attempt has been made by the provider to proofread this document, occasional misspellings and typographical errors may still be present Due to the previous pandemic, and the use of personal protective equipment (PPE) This may decrease voice recognition accuracy Inadvertent channel marketing specialist errors may occur 11/23/2024 Severe episode of recurrent major depressive disorder, without psychotic features (ICD-10 - F33.2) Acute Concerns/Problem List: 11/23/2024 Please resume and continue taking your Lexapro [...] software and direct typing Please excuse inadvertent channel marketing specialist or typing errors, or uncorrected word substitutions Although every attempt has been made by the provider to proofread this document, occasional misspellings and typographical errors may still be present Due to the previous pandemic, and the use of personal protective equipment (PPE) This may decrease voice recognition accuracy Inadvertent channel marketing specialist errors may occur 11/23/2024 Alcohol abuse, uncomplicated (ICD-10 - F10.10) Acute Concerns/Problem List: 11/23/2024 Please resume and continue taking your Lexapro [...] software and direct typing Please excuse inadvertent channel marketing specialist or typing errors, or uncorrected word substitutions Although every attempt has been made by the provider to proofread this document, occasional misspellings and typographical errors may still be present Due to the previous pandemic, and the use of personal protective equipment (PPE) This may decrease voice recognition accuracy Inadvertent channel marketing specialist errors may occur 08/16/2024 Severe episode of recurrent major depressive disorder, without psychotic features (ICD-10 - F33.2) Acute Concerns/Problem List: 08/16/2024 Continue Ezetimibe as prescribed, repeat lipid panel sent Nurse visit scheduled for her Vivitrol injections Discussed palpitations may be result of anxiety, patient sent for EKG today Holter monitor placed for 14 day monitoring, instructions and diary given to patient Echocardiogram order sent Follow-up with echo and lab results at next visit Of note, some information is being carried forward from prior records for informational purposes only and is being cited so that efficiency, safety and quality of the patient's care is not compromised This note was prepared using voice recognition software and direct typing Please excuse inadvertent channel marketing specialist or typing errors, or uncorrected word substitutions Although every attempt has been made by the provider to proofread this document, occasional misspellings and typographical errors may still be present Due to the previous pandemic, and the use of personal protective equipment (PPE) This may decrease voice recognition accuracy Inadvertent channel marketing specialist errors may occur 08/16/2024 Elevated LFTs (ICD-10 - R79.89) Acute Concerns/Problem List: 08/16/2024 Continue Ezetimibe as prescribed, repeat lipid panel sent Nurse visit scheduled for her Vivitrol injections Discussed palpitations may be result of anxiety, patient sent for EKG today Holter monitor placed for 14 day monitoring, instructions and diary given to patient Echocardiogram order sent Follow-up with echo and lab results at next visit Of note, some information is being carried forward from prior records for informational purposes only and is being cited so that efficiency, safety and quality of the patient's care is not compromised This note was prepared using voice recognition software and direct typing Please excuse inadvertent channel marketing specialist or typing errors, or uncorrected word substitutions Although every attempt has been made by the provider to proofread this document, occasional misspellings and typographical errors may still be present Due to the previous pandemic, and the use of personal protective equipment (PPE) This may decrease voice recognition accuracy Inadvertent channel marketing specialist errors may occur 06/16/2024 Alcohol abuse, uncomplicated (ICD-10 - F10.10) Acute Concerns/Problem List: 06/15/2024 Referral for colonoscopy update Referral to plastics for possible breast reduction given recurrent candidal infections and back pain Reinitiate her Vivitrol _update comprehensive labs Increase Lexapro to 20 mg Of note, some information is being carried forward from prior records for informational purposes only and is being cited so that efficiency, safety and quality of the patient's care is not compromised This note was prepared using voice recognition software and direct typing Please excuse inadvertent channel marketing specialist or typing errors, or uncorrected word substitutions Although every attempt has been made by the provider to proofread this document, occasional misspellings and typographical errors may still be present Due to the previous pandemic, and the use of personal protective equipment (PPE) This may decrease voice recognition accuracy Inadvertent channel marketing specialist errors may occur 06/16/2024 Severe episode of recurrent major depressive disorder, without psychotic features (ICD-10 - F33.2) Acute Concerns/Problem List: 06/15/2024 Referral for colonoscopy update Referral to plastics for possible breast reduction given recurrent candidal infections and back pain Reinitiate her Vivitrol _update comprehensive labs Increase Lexapro to 20 mg Of note, some information is being carried forward from prior records for informational purposes only and is being cited so that efficiency, safety and quality of the patient's care is not compromised This note was prepared using voice recognition software and direct typing Please excuse inadvertent channel marketing specialist or typing errors, or uncorrected word substitutions Although every attempt has been made by the provider to proofread this document, occasional misspellings and typographical errors may still be present Due to the previous pandemic, and the use of personal protective equipment (PPE) This may decrease voice recognition accuracy Inadvertent channel marketing specialist errors may occur 06/16/2024 Abdominal pain of unknown etiology (ICD-10 - R10.9) Acute Concerns/Problem List: 06/15/2024 Referral for colonoscopy update Referral to plastics for possible breast reduction given recurrent candidal infections and back pain Reinitiate her Vivitrol _update comprehensive labs Increase Lexapro to 20 mg Of note, some information is being carried forward from prior records for informational purposes only and is being cited so that efficiency, safety and quality of the patient's care is not compromised This note was prepared using voice recognition software and direct typing Please excuse inadvertent channel marketing specialist or typing errors, or uncorrected word substitutions Although every attempt has been made by the provider to proofread this document, occasional misspellings and typographical errors may still be present Due to the previous pandemic, and the use of personal protective equipment (PPE) This may decrease voice recognition accuracy Inadvertent channel marketing specialist errors may occur 08/16/2024 Anxiety (ICD-10 - F41.9) Acute Concerns/Problem List: 08/16/2024 Continue Ezetimibe as prescribed, repeat lipid panel sent Nurse visit scheduled for her Vivitrol injections Discussed palpitations may be result of anxiety, patient sent for EKG today Holter monitor placed for 14 day monitoring, instructions and diary given to patient Echocardiogram order sent Follow-up with echo and lab results at next visit Of note, some information is being carried forward from prior records for informational purposes only and is being cited so that efficiency, safety and quality of the patient's care is not compromised This note was prepared using voice recognition software and direct typing Please excuse inadvertent channel marketing specialist or typing errors, or uncorrected word substitutions Although every attempt has been made by the provider to proofread this document, occasional misspellings and typographical errors may still be present Due to the previous pandemic, and the use of personal protective equipment (PPE) This may decrease voice recognition accuracy Inadvertent channel marketing specialist errors may occur 11/23/2024 Abdominal pain of unknown etiology (ICD-10 - R10.9) Acute Concerns/Problem List: 11/23/2024 Please resume and continue taking your Lexapro [...] software and direct typing Please excuse inadvertent channel marketing specialist or typing errors, or uncorrected word substitutions Although every attempt has been made by the provider to proofread this document, occasional misspellings and typographical errors may still be present Due to the previous pandemic, and the use of personal protective equipment (PPE) This may decrease voice recognition accuracy Inadvertent channel marketing specialist errors may occur 04/24/2025 Severe episode of recurrent major depressive disorder, without psychotic features (ICD-10 - F33.2) Acute Concerns/Problem List: 04/24/2025 Lumbar spine MRI Discussed the importance of taking Lexapro on a regular basis She will return tomorrow to get her Vivitrol injection Ativan as needed Her last drink was almost a month ago She is due for updated labs including lipids Of note, some information is being carried forward from prior records for informational purposes only and is being cited so that efficiency, safety and quality of the patient's care is not compromised This note was prepared using voice recognition software and direct typing Please excuse inadvertent channel marketing specialist or typing errors, or uncorrected word substitutions Although every attempt has been made by the provider to proofread this document, occasional misspellings and typographical errors may still be present Due to the previous pandemic, and the use of personal protective equipment (PPE) This may decrease voice recognition accuracy Inadvertent channel marketing specialist errors may occur 04/24/2025 Abdominal pain of unknown etiology (ICD-10 - R10.9) Acute Concerns/Problem List: 04/24/2025 Lumbar spine MRI Discussed the importance of taking Lexapro on a regular basis She will return tomorrow to get her Vivitrol injection Ativan as needed Her last drink was almost a month ago She is due for updated labs including lipids Of note, some information is being carried forward from prior records for informational purposes only and is being cited so that efficiency, safety and quality of the patient's care is not compromised This note was prepared using voice recognition software and direct typing Please excuse inadvertent channel marketing specialist or typing errors, or uncorrected word substitutions Although every attempt has been made by the provider to proofread this document, occasional misspellings and typographical errors may still be present Due to the previous pandemic, and the use of personal protective equipment (PPE) This may decrease voice recognition accuracy Inadvertent channel marketing specialist errors may occur 04/24/2025 Elevated LFTs (ICD-10 - R79.89) Acute Concerns/Problem List: 04/24/2025 Lumbar spine MRI Discussed the importance of taking Lexapro on a regular basis She will return tomorrow to get her Vivitrol injection Ativan as needed Her last drink was almost a month ago She is due for updated labs including lipids Of note, some information is being carried forward from prior records for informational purposes only and is being cited so that efficiency, safety and quality of the patient's care is not compromised This note was prepared using voice recognition software and direct typing Please excuse inadvertent channel marketing specialist or typing errors, or uncorrected word substitutions Although every attempt has been made by the provider to proofread this document, occasional misspellings and typographical errors may still be present Due to the previous pandemic, and the use of personal protective equipment (PPE) This may decrease voice recognition accuracy Inadvertent channel marketing specialist errors may occur 11/23/2024 Elevated LFTs (ICD-10 - R79.89) Acute Concerns/Problem List: 11/23/2024 Please resume and continue taking your Lexapro [...] software and direct typing Please excuse inadvertent channel marketing specialist or typing errors, or uncorrected word substitutions Although every attempt has been made by the provider to proofread this document, occasional misspellings and typographical errors may still be present Due to the previous pandemic, and the use of personal protective equipment (PPE) This may decrease voice recognition accuracy Inadvertent channel marketing specialist errors may occur 08/16/2024 Alcohol abuse, uncomplicated (ICD-10 - F10.10) Acute Concerns/Problem List: 08/16/2024 Continue Ezetimibe as prescribed, repeat lipid panel sent Nurse visit scheduled for her Vivitrol injections Discussed palpitations may be result of anxiety, patient sent for EKG today Holter monitor placed for 14 day monitoring, instructions and diary given to patient Echocardiogram order sent Follow-up with echo and lab results at next visit Of note, some information is being carried forward from prior records for informational purposes only and is being cited so that efficiency, safety and quality of the patient's care is not compromised This note was prepared using voice recognition software and direct typing Please excuse inadvertent channel marketing specialist or typing errors, or uncorrected word substitutions Although every attempt has been made by the provider to proofread this document, occasional misspellings and typographical errors may still be present Due to the previous pandemic, and the use of personal protective equipment (PPE) This may decrease voice recognition accuracy Inadvertent channel marketing specialist errors may occur 08/16/2024 Other chronic pain (ICD-10 - G89.29) Acute Concerns/Problem List: 08/16/2024 Continue Ezetimibe as prescribed, repeat lipid panel sent Nurse visit scheduled for her Vivitrol injections Discussed palpitations may be result of anxiety, patient sent for EKG today Holter monitor placed for 14 day monitoring, instructions and diary given to patient Echocardiogram order sent Follow-up with echo and lab results at next visit Of note, some information is being carried forward from prior records for informational purposes only and is being cited so that efficiency, safety and quality of the patient's care is not compromised This note was prepared using voice recognition software and direct typing Please excuse inadvertent channel marketing specialist or typing errors, or uncorrected word substitutions Although every attempt has been made by the provider to proofread this document, occasional misspellings and typographical errors may still be present Due to the previous pandemic, and the use of personal protective equipment (PPE) This may decrease voice recognition accuracy Inadvertent channel marketing specialist errors may occur 11/23/2024 Other chronic pain (ICD-10 - G89.29) Acute Concerns/Problem List: 11/23/2024 Please resume and continue taking your Lexapro [...] software and direct typing Please excuse inadvertent channel marketing specialist or typing errors, or uncorrected word substitutions Although every attempt has been made by the provider to proofread this document, occasional misspellings and typographical errors may still be present Due to the previous pandemic, and the use of personal protective equipment (PPE) This may decrease voice recognition accuracy Inadvertent channel marketing specialist errors may occur 04/24/2025 Other chronic pain (ICD-10 - G89.29) Acute Concerns/Problem List: 04/24/2025 Lumbar spine MRI Discussed the importance of taking Lexapro on a regular basis She will return tomorrow to get her Vivitrol injection Ativan as needed Her last drink was almost a month ago She is due for updated labs including lipids Of note, some information is being carried forward from prior records for informational purposes only and is being cited so that efficiency, safety and quality of the patient's care is not compromised This note was prepared using voice recognition software and direct typing Please excuse inadvertent channel marketing specialist or typing errors, or uncorrected word substitutions Although every attempt has been made by the provider to proofread this document, occasional misspellings and typographical errors may still be present Due to the previous pandemic, and the use of personal protective equipment (PPE) This may decrease voice recognition accuracy Inadvertent channel marketing specialist errors may occur 04/24/2025 Mixed hyperlipidemia (ICD-10 - E78.2) Acute Concerns/Problem List: 04/24/2025 Lumbar spine MRI Discussed the importance of taking Lexapro on a regular basis She will return tomorrow to get her Vivitrol injection Ativan as needed Her last drink was almost a month ago She is due for updated labs including lipids Of note, some information is being carried forward from prior records for informational purposes only and is being cited so that efficiency, safety and quality of the patient's care is not compromised This note was prepared using voice recognition software and direct typing Please excuse inadvertent channel marketing specialist or typing errors, or uncorrected word substitutions Although every attempt has been made by the provider to proofread this document, occasional misspellings and typographical errors may still be present Due to the previous pandemic, and the use of personal protective equipment (PPE) This may decrease voice recognition accuracy Inadvertent channel marketing specialist errors may occur 11/23/2024 Mixed hyperlipidemia (ICD-10 - E78.2) Acute Concerns/Problem List: 11/23/2024 Please resume and continue taking your Lexapro [...] software and direct typing Please excuse inadvertent channel marketing specialist or typing errors, or uncorrected word substitutions Although every attempt has been made by the provider to proofread this document, occasional misspellings and typographical errors may still be present Due to the previous pandemic, and the use of personal protective equipment (PPE) This may decrease voice recognition accuracy Inadvertent channel marketing specialist errors may occur 08/16/2024 Mixed hyperlipidemia (ICD-10 - E78.2) Acute Concerns/Problem List: 08/16/2024 Continue Ezetimibe as prescribed, repeat lipid panel sent Nurse visit scheduled for her Vivitrol injections Discussed palpitations may be result of anxiety, patient sent for EKG today Holter monitor placed for 14 day monitoring, instructions and diary given to patient Echocardiogram order sent Follow-up with echo and lab results at next visit Of note, some information is being carried forward from prior records for informational purposes only and is being cited so that efficiency, safety and quality of the patient's care is not compromised This note was prepared using voice recognition software and direct typing Please excuse inadvertent channel marketing specialist or typing errors, or uncorrected word substitutions Although every attempt has been made by the provider to proofread this document, occasional misspellings and typographical errors may still be present Due to the previous pandemic, and the use of personal protective equipment (PPE) This may decrease voice recognition accuracy Inadvertent channel marketing specialist errors may occur 08/16/2024 Fatty liver (ICD-10 - K76.0) Acute Concerns/Problem List: 08/16/2024 Continue Ezetimibe as prescribed, repeat lipid panel sent Nurse visit scheduled for her Vivitrol injections Discussed palpitations may be result of anxiety, patient sent for EKG today Holter monitor placed for 14 day monitoring, instructions and diary given to patient Echocardiogram order sent Follow-up with echo and lab results at next visit Of note, some information is being carried forward from prior records for informational purposes only and is being cited so that efficiency, safety and quality of the patient's care is not compromised This note was prepared using voice recognition software and direct typing Please excuse inadvertent channel marketing specialist or typing errors, or uncorrected word substitutions Although every attempt has been made by the provider to proofread this document, occasional misspellings and typographical errors may still be present Due to the previous pandemic, and the use of personal protective equipment (PPE) This may decrease voice recognition accuracy Inadvertent channel marketing specialist errors may occur 11/23/2024 Fatty liver (ICD-10 - K76.0) Acute Concerns/Problem List: 11/23/2024 Please resume and continue taking your Lexapro [...] software and direct typing Please excuse inadvertent channel marketing specialist or typing errors, or uncorrected word substitutions Although every attempt has been made by the provider to proofread this document, occasional misspellings and typographical errors may still be present Due to the previous pandemic, and the use of personal protective equipment (PPE) This may decrease voice recognition accuracy Inadvertent channel marketing specialist errors may occur 04/24/2025 Fatty liver (ICD-10 - K76.0) Acute Concerns/Problem List: 04/24/2025 Lumbar spine MRI Discussed the importance of taking Lexapro on a regular basis She will return tomorrow to get her Vivitrol injection Ativan as needed Her last drink was almost a month ago She is due for updated labs including lipids Of note, some information is being carried forward from prior records for informational purposes only and is being cited so that efficiency, safety and quality of the patient's care is not compromised This note was prepared using voice recognition software and direct typing Please excuse inadvertent channel marketing specialist or typing errors, or uncorrected word substitutions Although every attempt has been made by the provider to proofread this document, occasional misspellings and typographical errors may still be present Due to the previous pandemic, and the use of personal protective equipment (PPE) This may decrease voice recognition accuracy Inadvertent channel marketing specialist errors may occur 04/24/2025 Encounter for examination of blood pressure without abnormal findings (ICD-10 - Z01.30) Acute Concerns/Problem List: 04/24/2025 Lumbar spine MRI Discussed the importance of taking Lexapro on a regular basis She will return tomorrow to get her Vivitrol injection Ativan as needed Her last drink was almost a month ago She is due for updated labs including lipids Of note, some information is being carried forward from prior records for informational purposes only and is being cited so that efficiency, safety and quality of the patient's care is not compromised This note was prepared using voice recognition software and direct typing Please excuse inadvertent channel marketing specialist or typing errors, or uncorrected word substitutions Although every attempt has been made by the provider to proofread this document, occasional misspellings and typographical errors may still be present Due to the previous pandemic, and the use of personal protective equipment (PPE) This may decrease voice recognition accuracy Inadvertent channel marketing specialist errors may occur 11/23/2024 Encounter for examination of blood pressure without abnormal findings (ICD-10 - Z01.30) Acute Concerns/Problem List: 11/23/2024 Please resume and continue taking your Lexapro [...] software and direct typing Please excuse inadvertent channel marketing specialist or typing errors, or uncorrected word substitutions Although every attempt has been made by the provider to proofread this document, occasional misspellings and typographical errors may still be present Due to the previous pandemic, and the use of personal protective equipment (PPE) This may decrease voice recognition accuracy Inadvertent channel marketing specialist errors may occur 08/16/2024 Palpitations (ICD-10 - R00.2) Acute Concerns/Problem List: 08/16/2024 Continue Ezetimibe as prescribed, repeat lipid panel sent Nurse visit scheduled for her Vivitrol injections Discussed palpitations may be result of anxiety, patient sent for EKG today Holter monitor placed for 14 day monitoring, instructions and diary given to patient Echocardiogram order sent Follow-up with echo and lab results at next visit Of note, some information is being carried forward from prior records for informational purposes only and is being cited so that efficiency, safety and quality of the patient's care is not compromised This note was prepared using voice recognition software and direct typing Please excuse inadvertent channel marketing specialist or typing errors, or uncorrected word substitutions Although every attempt has been made by the provider to proofread this document, occasional misspellings and typographical errors may still be present Due to the previous pandemic, and the use of personal protective equipment (PPE) This may decrease voice recognition accuracy Inadvertent channel marketing specialist errors may occur 04/24/2025 Left lumbar radiculopathy (ICD-10 - M54.16) Acute Concerns/Problem List: 04/24/2025 Lumbar spine MRI Discussed the importance of taking Lexapro on a regular basis She will return tomorrow to get her Vivitrol injection Ativan as needed Her last drink was almost a month ago She is due for updated labs including lipids Of note, some information is being carried forward from prior records for informational purposes only and is being cited so that efficiency, safety and quality of the patient's care is not compromised This note was prepared using voice recognition software and direct typing Please excuse inadvertent channel marketing specialist or typing errors, or uncorrected word substitutions Although every attempt has been made by the provider to proofread this document, occasional misspellings and typographical errors may still be present Due to the previous pandemic, and the use of personal protective equipment (PPE) This may decrease voice recognition accuracy Inadvertent channel marketing specialist errors may occur Plan Of Treatment Pending Test Test Name Order Date Ultrasound : Abdomen 06/14/2023 Mammogram 06/23/2022 Mammogram 03/02/2024 MRI : Lumbar without contrast 04/24/2025 EKG 08/16/2024 25OH VITAMIN D 04/21/2023 25OH VITAMIN D 12/09/2020 CBC (COMPLETE BLOOD COUNT) 03/11/2023 CBC (COMPLETE BLOOD COUNT) 10/04/2020 CBC (COMPLETE BLOOD COUNT) WITH DIFF COMPREHENSIVE METABOLIC PANEL 03/11/2023 COMPREHENSIVE METABOLIC PANEL 04/21/2023 COMPREHENSIVE METABOLIC PANEL 10/04/2020 HEMOGLOBIN A1C 10/04/2020 HEMOGLOBIN A1C 04/21/2023 HEPATITIS A ANTIBODY, IGM 10/04/2020 HEPATITIS B SURFACE ANTIBODY, QUAL 10/04 LIPID PANEL 10/04/2020 LIPID PANEL 04/21/2023 T3, FREE 10/04/2020 T4, TOTAL 10/04/2020 TSH 10/04/2020 TSH 04/21/2023 URINALYSIS W/REFLEX CULTURE 04/21/2023 VITAMIN B12 12/09/2020 Lipase 03/11/2023 CT Abd and Pelvis w Contrast 03/12/2023 CT Abd and Pelvis w and w/o Contrast URINALYSIS 04/24/2025 COMPREHENSIVE METABOLIC PANEL 04/24/2025 CBC WITH AUTO DIFF 04/24/2025 VITAMIN D, 25-HYDROXY 04/24/2025 TSH 04/24/2025 HEPATITIS C VIRUS SCREEN 10/04/2020 LIPID PANEL, STANDARD 06/16/2024 LIPID PANEL, STANDARD 08/16/2024 COMPREHENSIVE METABOLIC PANEL 06/16/2024 CBC (INCLUDES DIFF/PLT) 06/16/2024 URINALYSIS, COMPLETE 06/16/2024 URINALYSIS, COMPLETE W/REFLEX TO CULTURE 03/06/2021 HEMOGLOBIN A1c 06/16/2024 TSH 06/16/2024 VITAMIN D,25-OH,TOTAL,IA 06/16/2024 HEPATITIS A ANTIBODY, IGG 10/04/2020 COMPLETE URINALYSIS 10/04/2020 COMPLETE URINALYSIS 03/11/2023 H PYLORI BREATH TEST 03/11/2023 ALK PHOS 03/11/2023 HEMOGLOBIN A1C 04/24/2025 LIPID PANEL 04/24/2025 Future Test Test Name Order Date 25OH VITAMIN D 04/20/2022 CBC (COMPLETE BLOOD COUNT) WITH DIFF COMPREHENSIVE METABOLIC PANEL 04/20/2022 HEMOGLOBIN A1C 04/20/2022 LIPID PANEL 04/20/2022 TSH WITH REFLEX TO FT4 04/20/2022 URINALYSIS W/REFLEX CULTURE 04/20/2022 Next Appt Details Provider Name:YAYO CALHOUN, 06/18/2025 10:00:00 AM, [address] [facility], [address], [place], [address], Insurance Providers Payer Name Payer Address Payer Phone Subscriber Number Group Number Insured Name Patient Relationship to Insured Coverage Start Date Coverage End Date [employer] [address] [place] [phone] [id number] July Brown Self - patient is the insured Medications Administered Medication Instructions Date of Administration Dosage Notes vitamin b12 10/04/2020 1 mL LOT #[id number] vitamin b12 01/30/2021 1 mL Vivitrol 11/19/2020 380 mg Vivitrol 12/27/2020 4 mL Vivitrol 03/09/2022 380 mg lot# [id number] Vivitrol 05/13/2022 1 lot# [id number] Vivitrol 08/05/2022 380 mg lot#[id number] Vivitrol 09/25/2022 lot#[id number] Vivitrol 03/14/2024 380 mg Vivitrol 08/22/2024 Vivitrol 11/20/2024 LOT#[id number] Vivitrol 04/25/2025 LOT#[id number] Medical (General) History Medical History History ICD Code fatty liver anxiety depression Surgical History Surgery Date(Month/Year) section 10/07/2012
== END 2025-05-16 14:15 | disposition home or self-care (01) ==
PROVIDERS: PCP Nurse Practitioner Acute Care; Visit Provider Physician Assistant
DX: M54.16 Radiculopathy, lumbar region (principal); M47.816 Spondylosis without myelopathy or radiculopathy, lumbar region
CPT/HCPCS: 99204

== ENCOUNTER → 2025-05-16 13:55 | Outpatient (BNVA) | payer MEDICARE, SELFPAY | PROVIDERS: PCP Nurse Practitioner Acute Care; Visit Provider Physician Assistant | DX: M47.26 Other spondylosis with radiculopathy, lumbar region (principal); M51.369 Other intervertebral disc degeneration, lumbar region without mention of lumbar back pain or lower extremity pain; M43.16 Spondylolisthesis, lumbar region | CPT/HCPCS: 99202 ==